=== PATIENT | female | born 1935 | race Caucasian/White ===

== ENCOUNTER 2016-11-19 10:00 | Inpatient (IN) | payer OTHER, BC ==
[~2016-11-19] VITALS: Ht 160 cm; Wt 84.1 kg
[~2016-11-19 10:00] MED LIST: ASPCH81X PO; CHOL400T PO; CYAN100020 PO; FENO145T26 PO; FURO-85 PO; GLIP1TAB85 PO; LBT/200 PO; LEVO75TA5 PO; NIFE30TA83 PO; NIFE60TA57 PO; NITR0.4D TD; SIMV10TA5 PO; ULT50X PO
[2016-11-19] MEDS ORDERED: SODIUM CHLORIDE 0.9% 500ML 500 ML IV STA (10:07)
[2016-11-19] MEDS ORDERED: SODIUM CHLORIDE 0.9% 1000ML 1,000 ML IV STA (10:07)
--- NOTE | 2016-11-19 10:20 | DIAGNOSTIC IMAGING REPORT ---
SINGLE VIEW CHEST CLINICAL HISTORY: Sepsis. FINDINGS: An AP, portable, supine chest radiograph is compared to study dated 04/15/2016. The examination is degraded by portable technique and patient rotation. The heart is enlarged and there is atherosclerotic calcification of the thoracic aorta. The pulmonary vasculature is noncongested. Chronic interstitial thickening is similar to previous. No airspace consolidation or large pleural effusion is identified. Atelectasis is noted at the left lung base. No pneumothorax is seen. The skeletal structures are osteopenic. 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 Calcified granulomas are seen in the spleen. IMPRESSION: Cardiomegaly with no acute cardiopulmonary abnormality. Electronically signed by: Attila Montes M.D. 11/19/2016 10:18 AM Dictated Date/Time: 11/19/2016 10:16 AM
[2016-11-19 10:25] LABS: HEMATOCRIT 38.3 % (37-47); MEAN CELL VOLUME 86.3 fL (80-100); MEAN CORPUSCULAR HEMOGLOBIN 29.1 pg (25-34); MEAN CORPUSCULAR HGB CONC 33.7 g/dl (32-36); MEAN PLATELET VOLUME 11.1 fL (7.4-10.4); PLATELET COUNT 220 K/uL (130-400); RED BLOOD COUNT 4.44 M/uL (4.2-5.4); WHITE BLOOD COUNT 15.29 K/uL (4.8-10.8)
--- NOTE | 2016-11-19 10:29 | DIAGNOSTIC IMAGING REPORT ---
CT SCAN OF THE BRAIN WITHOUT IV CONTRAST CLINICAL HISTORY: Change in mental status. Hypothermia. COMPARISON STUDY: CT of the brain dated 10/27/2013. TECHNIQUE: Unenhanced axial CT scan of the brain is performed from the vertex to the skull base. The patient was scanned twice due to motion artifact. CT DOSE: 1074.96 mGy.cm FINDINGS: Brain parenchyma: There are age-related involutional changes noting mild subcortical and periventricular microangiopathic change. There is no hemorrhage, mass effect, or evidence of acute territorial ischemia by CT criteria. Mandel-white matter is preserved. No extra-axial fluid collection is seen. Ventricles, sulci, cisterns: Prominent secondary to involutional change. Intracranial vasculature: There is atherosclerotic calcification of the cavernous carotid arteries. Calvarium: Unremarkable. Sinuses and mastoids: The visualized paranasal sinuses are clear. The mastoid air cells are well pneumatized. Orbits: The bony orbits are grossly intact. There are bilateral ocular lens implants. IMPRESSION: There is no hemorrhage, mass effect, or evidence of acute territorial ischemia by CT criteria. Electronically signed by: Attila Montes M.D. 11/19/2016 10:27 AM Dictated Date/Time: 11/19/2016 10:24 AM
[2016-11-19 10:40] LABS: ALT/SGPT 23 U/L (12-78); BLOOD UREA NITROGEN 52 mg/dl (7-18); BUN/CREATININE RATIO 24.7 (10-20); CALCIUM 9.8 mg/dl (8.5-10.1); CARBON DIOXIDE 19 mmol/L (21-32); CHLORIDE 107 mmol/L (98-107); GLUCOSE 153 mg/dl (70-99); POTASSIUM 5.6 mmol/L (3.5-5.1); SODIUM 141 mmol/L (136-145)
[2016-11-19 10:44] LABS: ALKALINE PHOSPHATASE 87 U/L (45-117); AST/SGOT 28 U/L (15-37)
[2016-11-19 10:45] LABS: ALB/GLOB RATIO 1.3 (0.9-2)
[2016-11-19 11:05] LABS: CKMB/CK RATIO 1.3 (0-3.0)
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
[2016-11-19 11:12] LABS: BASO % 0.2 %; BASO ABS # 0.03 K/uL (0-0.2); COMPLETE YES; EOS % 0.1 %; IG% 0.4 %; LYMPH % 10.3 %; LYMPH ABS # 1.57 K/uL (1.2-3.4); MONO % 2.6 %; NEUT % 86.4 %
[2016-11-19] MEDS ORDERED: METR-163 PO (11:46)
[2016-11-19] MEDS ORDERED: CEPH500C2 PO (11:46)
[2016-11-19 11:55] LABS: BENZODIAZEPINE, URINE NEG (NEG); COCAINE,URINE NEG (NEG); PHENCYCLIDINE, URINE NEG (NEG)
[2016-11-19] MEDS ORDERED: NTRTP2 TD (11:56)
[2016-11-19] MEDS ORDERED: SODIUM POLYST. SULF SUSP 15G/60ML PO STA (11:57)
[2016-11-19] MEDS ORDERED: CALCIUM GLUCONATE 10% 1,000 MG in SODIUM CHLORIDE 0.9% 50ML 50 ML IV ONE (12:00)
[2016-11-19] MEDS ORDERED: CONSULT PHARMACY STA (12:28)
[2016-11-19] MEDS ORDERED: ONDANSETRON INJ 2 MG/ML 2 ML VIAL IV PRN (12:30)
[2016-11-19] MEDS ORDERED: CHOL1000 PO (12:35)
[2016-11-19] MEDS ORDERED: GLUCOSE 40% GEL 15 GM TUBE PO PRN (12:45)
[2016-11-19] MEDS ORDERED: DEXTROSE 50% 50 ML SYR IV PRN (12:45)
[2016-11-19] MEDS ORDERED: GLUCOSE 10 TABS/TUBE PO PRN (12:45)
[2016-11-19] MEDS ORDERED: GLUCAGON FOR INJ 1 MG VIAL SQ PRN (12:45)
[2016-11-19 12:47] LABS: URINE APPEARANCE CLEAR (CLEAR); URINE BILIRUBIN NEG (NEG); URINE COLOR YELLOW; URINE EPITHELIAL CELL AUTO 0-5 /lpf (0-5); URINE NITRITE NEG (NEG); URINE SPECIFIC GRAVITY 1.008 (1.000-1.030); UROBILINOGEN NEG (NEG)
[2016-11-19 12:52] LABS: MANUAL MICROSCOPIC REQUIRED? NO; REVIEW REQ? NO
[2016-11-19 13:30] VITALS: BP 169/72; TEMP 36.5; O2SAT 97; Ht 160 cm; Wt 84.1 kg
[2016-11-19] MEDS ORDERED: AZTREONAM 2000 MG in DEXTROSE 5% 100 ML IV SCH (13:30)
[2016-11-19] MEDS ORDERED: AZTREONAM CONSULT ACTIVE PRN ×2 (13:45)
[2016-11-19] MEDS ORDERED: VANCOMYCIN CONSULT ACTIVE PRN (13:45)
[2016-11-19] MEDS ORDERED: VANCOMYCIN INJ 2,100 MG in SODIUM CHLORIDE 0.9% 500ML 500 ML IV SCH (14:00)
--- NOTE | 2016-11-19 14:13 | History and Physical ---
History & Physical Date & Time of Service: Nov 19, 2016 at 12:47 Chief Complaint: Hypothermia Primary Care Physician: Sumeet Izquierdo M.D. History of Present Illness Source: family, hospital records This is an 81 year old female with PMH of CAD s/p stent, DM, sleep apnea non- compliant with CPAP, hypothyroidism, hypertension, hyperlipidemia, and other problems listed below, who was brought to ER by ambulance for altered mental status. History not obtainable from patient due to mental status. Family states they saw the patient yesterday after she had fallen in the basement (family unsure what happened) after going to the basement because she thought there was an intruder. Then today pt' son-in-law came to her house, patient did not answer the door so entered the house through the window. Patient was not in the house and son-in-law noticed furniture was knocked over. 911 was called and patient was found 500 yards away from the home. It is unclear how long she was outside. Daughter states she was saying that people were trying to inject her with needles when she as found. Upon arrival to the ED patient was hypothermic with core temp 34.6 which improved with warm IVF's and Ruel hugger. Daughters state she was an antibiotics in late October for left leg infected sores. Daughter felt she was not getting better so called Dr. Izquierdo, who called in script for Keflex and Flagyl to start yesterday, but daughter states she did not take it (daughter counted the pills). Pt's daughter is unsure if she is taking any of her medications. Daughter states after May 2016 shoulder surgery she had hallucinations, and since then it was happening intermittently, but has been worse over past 2 months. Patient lives alone and cares for herself including her finances, which the daughter checks. Daughter states she is paranoid about the finances, has had insomnia, and has been fearful to leave her home, and has intermittent short term memory loss. Family denies any recent illness including fevers, chills, URI symptoms, cough, GI symptoms, urinary symptoms. She has been eating and drinking normally per family. Patient denies any chest pain or shortness of breath. 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 Family states stent was placed in remote past. Daughters deny history of schizophrenia, anxiety, depression, dementia. Denies history of arrhythmia or CHF. Past Medical/Surgical History Medical Problems: (1) CAD (coronary artery disease) Status: Chronic (2) Diabetes Status: Chronic (3) DM type 2 (diabetes mellitus, type 2) Status: Chronic (4) Hyperlipidemia Status: Chronic (5) Hypertension Status: Chronic (6) Hypothyroidism Status: Chronic (7) Sleep apnea Permanent Comment: not compliant with CPAP Status: Chronic Surgical Problems: (1) H/O shoulder surgery Status: Chronic (2) S/P coronary artery stent placement Status: Chronic (3) S/p right ankle surgery Status: Chronic Family History Not obtainable due to patient's mental status. Social History Smoking Status: Never Smoker Alcohol Use: none Drug Use: none Marital Status: Housing status: lives alone Occupational Status: retired Immunizations History of Influenza Vaccine: Yes History of Tetanus Vaccine?: Unknown History of Pneumococcal: Yes History of Hepatitis B Vaccine: No Allergies Coded Allergies: Codeine (Verified Allergy, Intermediate, Nausea, 05/15/16) Morphine (Verified Allergy, Unknown, nausea, 05/15/16) Penicillins (Unverified Adverse Reaction, Unknown, UNKNOWN, 11/19/16) Home Medications Scheduled Aspirin (Aspirin Chewable), 81 MG PO DAILY Cephalexin Monohydrate (Keflex), 500 MG PO TID Cholecalciferol (Vitamin D3), 1 TAB PO DAILY Cyanocobalamin (Vitamin B12), 1,000 MCG PO QAM Furosemide (Lasix), 20 MG PO QAM Glipizide Xl (Glucotrol Xl), 10 MG PO QAM Labetalol Hcl (Normodyne), 200 MG PO BID Levothyroxine Sodium (Levothyroxine Sodium), 75 MCG PO QAM Metronidazole (Flagyl), 500 MG PO BID Nifedipine Ext Rel (Procardia Xl Ext Rel), 30 MG PO QAM Nifedipine Ext Rel (Procardia Xl Ext Rel), 60 MG PO QAM Nitroglycerin (Nitroglycerin Transdermal), TD DAILY Simvastatin (Zocor), 10 MG PO QPM Review of Systems Not obtainable due to patient's mental status. Physical Exam Vital Signs Date Time Temp Pulse Resp B/P Pulse Ox O2 Delivery O2 Flow Rate FiO2 11/19/16 12:30 36.5 79 18 153/58 97 Room Air 11/19/16 12:00 36.1 76 18 153/78 100 Mask 10.0 11/19/16 11:30 35.7 66 16 156/54 99 Mask 10.0 11/19/16 11:22 35.6 80 18 157/49 99 Mask 10.0 11/19/16 11:02 35.4 85 20 122/104 99 Mask 10.0 11/19/16 10:42 35.1 69 22 145/66 99 Mask 10.0 11/19/16 10:28 35.0 79 20 238/111 99 Mask 10.0 11/19/16 10:27 100 Mask 11/19/16 10:10 34.6 74 100 Humidified Oxygen 10.0 11/19/16 10:06 77 General Appearance: WD/WN, + pertinent finding (alert confused ill appearing 81 year old female, ruel hugger in place, no distress, daughters at bedside) Head: normocephalic, atraumatic Eyes: normal inspection, PERRL, EOMI, sclerae normal ENT: pharynx normal, + pertinent finding (hard of hearing) Neck: supple Respiratory/Chest: lungs clear, normal breath sounds, no respiratory distress, no accessory muscle use, + pertinent finding (saturating well on oxygen mask) Cardiovascular: regular rate, rhythm, no murmur Abdomen/GI: normal bowel sounds, non tender, soft Extremities/Musculoskelatal: no calf tenderness, + pertinent finding (1+ edema BLLE) Neurologic/Psych: alert, normal mood/affect, + pertinent finding (initially was not answering questions appropriately. on reassessment she could answer she is in the hospital, and date is "around the ". unable to answer what happened [employer] RO[employer]. no dysarthria. cranial nerves II-XII intact. generally weak but moves all extremities equally. ) Skin: warm/dry, + pertinent finding (scattered ecchymosis and fresh appearing abrasions of extremities) Diagnostics Laboratory Results Results Past 24 Hours Test 11/19/16 09:14 11/19/16 10:07 11/19/16 10:37 11/19/16 11:00 Range/Units White Blood Count 15.29 4.8-10.8 K/uL Red Blood Count 4.44 4.2-5.4 M/uL Hemoglobin 12.9 12.0-16.0 g/dL Hematocrit 38.3 37-47 % Mean Corpuscular Volume 86.3 80-100 fL Mean Corpuscular Hemoglobin 29.1 25-34 pg Mean Corpuscular Hemoglobin Concent 33.7 32-36 g/dl Platelet Count 220 130-400 K/uL Mean Platelet Volume 11.1 7.4-10.4 fL Neutrophils (%) (Auto) 86.4 % Lymphocytes (%) (Auto) 10.3 % Monocytes (%) (Auto) 2.6 % Eosinophils (%) (Auto) 0.1 % Basophils (%) (Auto) 0.2 % Neutrophils # (Auto) 13.22 1.4-6.5 K/uL Lymphocytes # (Auto) 1.57 1.2-3.4 K/uL Monocytes # (Auto) 0.39 0.11-0.59 K/uL Eosinophils # (Auto) 0.02 0-0.5 K/uL Basophils # (Auto) 0.03 0-0.2 K/uL RDW Standard Deviation 44.6 36.4-46.3 fL RDW Coefficient of Variation 14.1 11.5-14.5 % Immature Granulocyte % (Auto) 0.4 % Immature Granulocyte # (Auto) 0.06 0.00-0.02 K/uL Prothrombin Time 11.0 9.0-12.0 SECONDS Prothromb Time International Ratio 1.0 0.9-1.1 Activated Partial Thromboplast Time 26.4 21.0-31.0 SECONDS Partial Thromboplastin Ratio 1.0 Sodium Level 141 136-145 mmol/L Potassium Level 5.6 3.5-5.1 mmol/L Chloride Level 107 98-107 mmol/L Carbon Dioxide Level 19 21-32 mmol/L Anion Gap 15.0 3-11 mmol/L Blood Urea Nitrogen 52 7-18 mg/dl Creatinine 2.10 0.60-1.20 mg/dl Est Creatinine Clear Calc Drug Dose 22.3 ml/min Estimated GFR () 25.1 Estimated GFR (Non- 21.7 BUN/Creatinine Ratio 24.7 10-20 Random Glucose 153 70-99 mg/dl Calcium Level 9.8 8.5-10.1 mg/dl Total Bilirubin 0.9 0.2-1 mg/dl Aspartate Amino Transf (AST/SGOT) 28 15-37 U/L Alanine Aminotransferase (ALT/SGPT) 23 12-78 U/L Alkaline Phosphatase 87 45-117 U/L Total Creatine Kinase 494 26-192 U/L Creatine Kinase MB 6.2 0.5-3.6 ng/ml Creatine Kinase MB Ratio 1.3 0-3.0 Troponin I < 0.015 0-0.045 ng/ml Total Protein 7.7 6.4-8.2 gm/dl Albumin 4.4 3.4-5.0 gm/dl Globulin 3.3 2.5-4.0 gm/dl Albumin/Globulin Ratio 1.3 0.9-2 Thyroid Stimulating Hormone (TSH) 2.040 0.300-4.500 uIu/ml Bedside Lactic Acid Venous 1.42 0.90-1.70 mmol/L Urine Opiates Screen NEG NEG Urine Methadone, Qualitative NEG NEG Urine Barbiturates NEG NEG Urine Phencyclidine (PCP) Level NEG NEG Ur Amphetamine/Methamphetamine NEG NEG MDMA (Ecstasy) Screen NEG NEG Urine Benzodiazepines Screen NEG NEG Urine Cocaine Metabolite NEG NEG Urine Marijuana (THC) NEG NEG Microbiology Results 11/19/16 Blood Culture, Received Pending 11/19/16 Urine Culture, Received Pending Diagnostic Radiology SINGLE VIEW CHEST CLINICAL HISTORY: Sepsis. FINDINGS: An AP, portable, supine chest radiograph is compared to study dated 04/15/2016. The examination is degraded by portable technique and patient rotation. The heart is enlarged and there is atherosclerotic calcification of the thoracic aorta. The pulmonary vasculature is noncongested. Chronic interstitial thickening is similar to previous. No airspace consolidation or large pleural effusion is identified. Atelectasis is noted at the left lung base. No pneumothorax is seen. The skeletal structures are osteopenic. 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 Calcified granulomas are seen in the spleen. IMPRESSION: Cardiomegaly with no acute cardiopulmonary abnormality. CT SCAN OF THE BRAIN WITHOUT IV CONTRAST CLINICAL HISTORY: Change in mental status. Hypothermia. COMPARISON STUDY: CT of the brain dated 10/27/2013. TECHNIQUE: Unenhanced axial CT scan of the brain is performed from the vertex to the skull base. The patient was scanned twice due to motion artifact. CT DOSE: 1074.96 mGy.cm FINDINGS: Brain parenchyma: There are age-related involutional changes noting mild subcortical and periventricular microangiopathic change. There is no hemorrhage, mass effect, or evidence of acute territorial ischemia by CT criteria. Mandel-white matter is preserved. No extra-axial fluid collection is seen. Ventricles, sulci, cisterns: Prominent secondary to involutional change. Intracranial vasculature: There is atherosclerotic calcification of the cavernous carotid arteries. Calvarium: Unremarkable. Sinuses and mastoids: The visualized paranasal sinuses are clear. The mastoid air cells are well pneumatized. Orbits: The bony orbits are grossly intact. There are bilateral ocular lens implants. IMPRESSION: There is no hemorrhage, mass effect, or evidence of acute territorial ischemia by CT criteria. EKG atrial fibrillation, 70 bpm, no ST or T wave abnormalities Impression Assessment and Plan ALTERED MENTAL STATUS Unclear etiology CT head- no acute findings Check MRI brain Consult neurology Consult psychiatry re hallucinations Neuro checks NPO except meds for now Speech therapy evaluation SIRS Meets SIRS criteria with hypothermia and leukocytosis; no tachycardia or hypotension; lactic acid WNL No clear source of infection CXR- no infiltrate, UA normal, skin abrasions with no apparent cellulitis Check blood cultures, urine culture Start broad spectrum antibiotics with Vancomycin and Aztreonam HYPOTHERMIA Initial core temp 34.6; improved with Ruel hugger and warmed IVF's Was outside in cold for unclear duration HYPERKALEMIA K is 5.6 EKG shows AF, no peaked T waves Will give calcium gluconate and Kayexalate Monitor in telemetry Recheck PRP this afternoon at 1600 ATRIAL FIBRILLATION Family denies history of AF- will obtain cardiology records from Post cardiology Initial EKG in ER showed atrial fibrillation with controlled rate Spontaneously converted to sinus rhythm Likely due to hypothermia Consult cardiology Recheck EKG in am HYPERTENSIVE URGENCY BP initially elevated to 238/111; now improved to 150s systolic Continue labetalol and nifedipine Resume furosemide in am CAD S/P STENT Stent done in remote past per family EKG- no ischemic findings Troponin negative Continue aspirin, beta tammie, nitro patch, statin CKD Cr is 2.1; has run 1.5 to 2.1 in past [facility] labs Received 500 mL bolus then started on 250 mL/hour in ER Will continue IVF's at 100 mL/hour Monitor renal function DM TYPE 2 Hold glipizide Insulin sliding scale coverage Check A1c in am HYPOTHYROIDISM Continue levothyroxine DVT PROPHYLAXIS Heparin SQ CODE STATUS DNR/ DNI per my discussion with the patient's daughters at bedside. Patient has a living will. DISPOSITION Follows with Dr. Shelly Izquierdo for primary care Living alone; family has been concerned, but states she refuses to move in with one of the daughters. Consult social services coordinator for discharge planning Would do PT/ OT evals once medically stable Patient seen in collaboration with Dr. Banks. Please see his addendum. VTE Prophylaxis VTE Risk Assessment Done? Y/N: Yes Risk Level: High
[2016-11-19] MEDS: HEPARIN SOD 5000 UNIT/0.5 ML CARP SQ SCH (14:50)
[2016-11-19] MEDS: SODIUM CHLORIDE 0.9% 1000ML 1,000 ML IV SCH (14:51)
--- NOTE | 2016-11-19 15:03 | Neurology Consultation ---
Neurology Consultation Date of Consultation: Nov 19, 2016. Attending Physician: Lisa Pan DO Primary Care Physician: Sumeet Izquierdo M.D. Reason for Consultation: altered mental status, hallucinations History of Present Illness 2 daughters and a granddaughter in room to give history. For the past 2 months Jessie has been having episodes of hallucinations. Yesterday she fell on her left hip. This am she was found outside in the cold with no shoes on and just her nightgown apparently crawled out of her window because she thought people where in the basement. She does not remember this or why she is in the hospital. She lives alone and up to this point she was making out her own bills and taking her own medications. Her son comes in and check that the bills are made out correctly but the daughters don't think she has been taking her medications appropriately. She had an infection on her left leg that they were treating with antibiotics but the second round of antibiotics were not taken. She is very [place] and tries to read people lips. her only current complaint is pain in her left hip. denies CP, SOB, abdominal pain, weakness, numbness tingling, N, V. Past Medical/Surgical History Medical Problems: (1) Acute kidney injury Status: Acute (2) Altered mental status Status: Acute Social History Smoking Status: Unknown if ever smoked Alcohol Use: none Drug Use: none Marital Status: Housing Status: lives with family Occupation Status: retired Allergies Coded Allergies: Codeine (Verified Allergy, Intermediate, Nausea, 05/15/16) Morphine (Verified Allergy, Unknown, nausea, 05/15/16) Penicillins (Unverified Adverse Reaction, Unknown, UNKNOWN, 11/19/16) Current Inpatient Medications Current Inpatient Medications Medications (Trade) Dose Ordered Sig/Anselmo Route Start Time Stop Time Status Last Admin Dose Admin Sodium Chloride (Nss 1000ml) 1,000 ml @ 100 mls/hr Q10H IV 11/19/16 12:26 12/19/16 12:25 Acetaminophen (Tylenol Tab) 650 mg Q4H PRN PO 11/19/16 12:30 12/19/16 12:29 Ondansetron HCl (Zofran Inj) 4 mg Q6H PRN IV 11/19/16 12:30 12/19/16 12:29 Vancomycin HCl (Consult) 1 ea UD PRN N/A 11/19/16 13:45 12/19/16 13:44 Heparin Sodium (Porcine) (Heparin Sq 5000 Unit/0.5ml) 5,000 unit Q8 SQ 11/19/16 14:00 12/19/16 13:59 Aspirin (Ecotrin Tab) 81 mg DAILY PO 11/20/16 09:00 12/20/16 08:59 Cholecalciferol (Vitamin D Tab) 1,000 inter.unit DAILY PO 11/20/16 09:00 12/20/16 08:59 Furosemide (Lasix Tab) 20 mg QAM PO 11/20/16 09:00 12/20/16 08:59 Labetalol HCl (Normodyne Tab) 200 mg BID PO 11/19/16 21:00 12/19/16 20:59 Levothyroxine Sodium (Synthroid Tab) 75 mcg DAILYBB PO 11/20/16 06:00 12/20/16 05:59 Nitroglycerin (Nitro-Dur 0.2 Mg/Hr Patch) 1 patch DAILY TD 11/20/16 09:00 12/20/16 08:59 Simvastatin (Zocor Tab) 10 mg QPM PO 11/19/16 21:00 12/19/16 20:59 Cyanocobalamin (Vitamin B-12 Tab) 1,000 mcg QAM PO 11/20/16 09:00 12/20/16 08:59 Aztreonam (Consult) 1 ea UD PRN N/A 11/19/16 13:45 12/19/16 13:44 Insulin Aspart (novoLOG ASPART) SLIDING SCALE If C... ACHS SC 11/19/16 16:15 12/19/16 16:14 Glucose (Glucose 40% Gel) 15-30 GRAMS 15 GRAMS... UD PRN PO 11/19/16 12:45 12/19/16 12:44 Glucose (Glucose Chew Tab) 4-8 Tablets 4 Tabl... UD PRN PO 11/19/16 12:45 12/19/16 12:44 Dextrose (Dextrose 50% 50ML Syringe) 25-50ML OF 50% DW IV FOR... UD PRN IV 11/19/16 12:45 12/19/16 12:44 Glucagon 1 mg 1 mg UD PRN SQ 11/19/16 12:45 12/19/16 12:44 Aztreonam 2000 mg/ Dextrose 110 ml @ 110 mls/hr TODAY@1330 IV 11/19/16 13:30 11/19/16 23:59 Vancomycin HCl/ Sodium Chloride (Vancomycin Inj/ Nss 500ml) 542 ml @ 200 mls/hr TODAY@1400 IV 11/19/16 14:00 11/19/16 23:59 Nifedipine (Procardia Xl Tab) 90 mg QAM PO 11/20/16 09:00 12/20/16 08:59 Miscellaneous (Remove Nitro-Dur Patch) 1 ea DAILY@21 N/A 11/19/16 21:00 12/19/16 20:59 Physical Exam Vital Signs (Past 24 Hrs): Date Time Temp Pulse Resp B/P Pulse Ox O2 Delivery O2 Flow Rate FiO2 11/19/16 13:30 36.5 16 169/72 97 Room Air 11/19/16 12:52 87 11/19/16 12:30 36.5 79 18 153/58 97 Room Air 11/19/16 12:00 36.1 76 18 153/78 100 Mask 10.0 11/19/16 11:30 35.7 66 16 156/54 99 Mask 10.0 11/19/16 11:22 35.6 80 18 157/49 99 Mask 10.0 11/19/16 11:02 35.4 85 20 122/104 99 Mask 10.0 11/19/16 10:42 35.1 69 22 145/66 99 Mask 10.0 11/19/16 10:28 35.0 79 20 238/111 99 Mask 10.0 11/19/16 10:27 100 Mask 11/19/16 10:10 34.6 74 100 Humidified Oxygen 10.0 11/19/16 10:06 77 Physical Exam: Constitutional: appearance nourished, obese Ears, Nose, Mouth and Throat: mucous membranes moist, no injection and skin normal, eyes normal Cardiovascular: normal S-1 and S-2 and regular rate and rhythm Respiratory: clear to auscultation (CTA) and no rales, rhonchi or wheeze Musculoskeletal: bilateral 2+ pitting edema, pain with lifting left leg Skin: extensive bruising arms, and abrasions bilateral LE Eyes: extraocular muscles intact (EOMI) and pupils equal, round and reactive to light (PERRL) NEUROLOGIC EXAMINATION: Mental status: Alert and interactive, very [place] Oriented to hospital, knows 2017, just celebrated MLK birthday, Meg is president Oriented to person Speech fluent with no evidence of aphasia Cranial Nerves smile and eye brow raise symmetric, tongue midline Reflexes: Deep tendon reflexes were symmetrical and graded 2/5. Plantar responses were flexor. Sensory: cool touch or vibration Coordination: finger to nose without bi pass or tremor Gait/Stance: lying in bed Motor: Negative for pronator drift of out stretched arms with eyes closed. 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, right hip flex 5/5, left hip flex 3/5, plantar flex ext 5/5 Laboratory Results Past 24 Hours: 11/19/16 09:14 Red Blood Count 4.44, Mean Corpuscular Volume 86.3, Mean Corpuscular Hemoglobin 29.1, Mean Corpuscular Hemoglobin Concent 33.7, Mean Platelet Volume 11.1, Neutrophils (%) (Auto) 86.4, Lymphocytes (%) (Auto) 10.3, Monocytes (%) (Auto) 2.6, Eosinophils (%) (Auto) 0.1, Basophils (%) (Auto) 0.2, Neutrophils # (Auto) 13.22, Lymphocytes # (Auto) 1.57, Monocytes # (Auto) 0.39, Eosinophils # (Auto) 0.02, Basophils # (Auto) 0.03 11/19/16 09:14 Test 11/19/16 09:14 11/19/16 10:07 11/19/16 10:37 11/19/16 11:00 White Blood Count 15.29 K/uL (4.8-10.8) Red Blood Count 4.44 M/uL (4.2-5.4) Hemoglobin 12.9 g/dL (12.0-16.0) Hematocrit 38.3 % (37-47) Mean Corpuscular Volume 86.3 fL (80-100) Mean Corpuscular Hemoglobin 29.1 pg (25-34) Mean Corpuscular Hemoglobin Concent 33.7 g/dl (32-36) Platelet Count 220 K/uL (130-400) Mean Platelet Volume 11.1 fL (7.4-10.4) Neutrophils (%) (Auto) 86.4 % Lymphocytes (%) (Auto) 10.3 % Monocytes (%) (Auto) 2.6 % Eosinophils (%) (Auto) 0.1 % Basophils (%) (Auto) 0.2 % Neutrophils # (Auto) 13.22 K/uL (1.4-6.5) Lymphocytes # (Auto) 1.57 K/uL (1.2-3.4) Monocytes # (Auto) 0.39 K/uL (0.11-0.59) Eosinophils # (Auto) 0.02 K/uL (0-0.5) Basophils # (Auto) 0.03 K/uL (0-0.2) RDW Standard Deviation 44.6 fL (36.4-46.3) RDW Coefficient of Variation 14.1 % (11.5-14.5) Immature Granulocyte % (Auto) 0.4 % Immature Granulocyte # (Auto) 0.06 K/uL (0.00-0.02) Prothrombin Time 11.0 SECONDS (9.0-12.0) Prothromb Time International Ratio 1.0 (0.9-1.1) Activated Partial Thromboplast Time 26.4 SECONDS (21.0-31.0) Partial Thromboplastin Ratio 1.0 Anion Gap 15.0 mmol/L (3-11) Est Creatinine Clear Calc Drug Dose 22.3 ml/min Estimated GFR () 25.1 Estimated GFR (Non- 21.7 BUN/Creatinine Ratio 24.7 (10-20) Calcium Level 9.8 mg/dl (8.5-10.1) Total Bilirubin 0.9 mg/dl (0.2-1) Aspartate Amino Transf (AST/SGOT) 28 U/L (15-37) Alanine Aminotransferase (ALT/SGPT) 23 U/L (12-78) Alkaline Phosphatase 87 U/L (45-117) Total Creatine Kinase 494 U/L (26-192) Creatine Kinase MB 6.2 ng/ml (0.5-3.6) Troponin I < 0.015 ng/ml (0-0.045) Total Protein 7.7 gm/dl (6.4-8.2) Albumin 4.4 gm/dl (3.4-5.0) Globulin 3.3 gm/dl (2.5-4.0) Albumin/Globulin Ratio 1.3 (0.9-2) Thyroid Stimulating Hormone (TSH) 2.040 uIu/ml (0.300-4.500) Creatine Kinase MB Ratio (0-3.0) Bedside Lactic Acid Venous 1.42 mmol/L (0.90-1.70) Urine Color YELLOW Urine Appearance CLEAR (CLEAR) Urine pH 5.0 (4.5-7.5) Urine Specific [place] 1.008 (1.000-1.030) Urine Protein TRACE (NEG) Urine Glucose (UA) NEG (NEG) Urine Ketones NEG (NEG) Urine Occult Blood NEG (NEG) Urine Nitrite NEG (NEG) Urine Bilirubin NEG (NEG) Urine Urobilinogen NEG (NEG) Urine Leukocyte Esterase NEG (NEG) Urine WBC (Auto) 0 /hpf (0-5) Urine RBC (Auto) 0-4 /hpf (0-4) Urine Hyaline Casts (Auto) 1-5 /lpf (0-5) Urine Epithelial Cells (Auto) 0-5 /lpf (0-5) Urine Bacteria (Auto) NEG (NEG) Urine Opiates Screen NEG (NEG) Urine Methadone, Qualitative NEG (NEG) Urine Barbiturates NEG (NEG) Urine Phencyclidine (PCP) Level NEG (NEG) Ur Amphetamine/Methamphetamine NEG (NEG) MDMA (Ecstasy) Screen NEG (NEG) Urine Benzodiazepines Screen NEG (NEG) Urine Cocaine Metabolite NEG (NEG) Urine Marijuana (THC) NEG (NEG) Test 11/19/16 14:[address] head- no acute findings Impression 81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 MRI brain to r/o lesions or malformation 2. hip xray left -pain with movement 3. B12, Folate RPR for reversible causes of dementia 4. kidney function should be evaluated -will need the MRI without contrast 5. carotid doppler -ordered I have seen and discussed above patient with Dr Liliam Becker, neurology Pt seen and examined. Gradually progressive cognitive dysfunction over greater than 1 year with decreased STM and word finding difficulty with some paranoia and delusions. Family believes pt left her home through a window. The pt walked a distance through a cornfield barefoot in her night gown and bathrobe. It is unknown how long she was outside when she was found in the field hypothermic. The pt appears mildly delirious at present likely related to hypothermia, recent infection. 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 Once improving would consider Aoloft. pt has been mildly depressed and that could potentially help with paranoid, delusions. If not seroquel might be an option. Will likely start on Aricept at outpt. Pt needs 24 hour/day supervision. VINEET Becker MD
[2016-11-19 15:46] VITALS: BP 161/68; PULSE 78; TEMP 36.5; O2SAT 98
[2016-11-19] MEDS: INSULIN ASPART 100 UNITS/ML 3 ML PEN SC SCH ×2 (16:15→21:00)
--- NOTE | 2016-11-19 16:15 | Pharmacy Progress Note ---
Pharmacy Antibiotic Consult Date of Service: Nov 19, 2016. Pharmacy Dosing Scope Pharmacy is consulted to initiate IV Vancomycin/Aztreonam dosing therapy, order appropriate labs and adjust drug dose/frequency. Subjective The patient is a 81 year old female admitted on Nov 19, 2016 at 12:26. Objective Height (Feet): 5 Height (Inches): 3.00 Weight (Kilograms): 83.000 Lab Results (24hrs): Laboratory Tests Test 11/19/16 09:14 11/19/16 16:00 BUN/Creatinine Ratio 24.7 Blood Urea Nitrogen 52 mg/dl Creatinine 2.10 mg/dl White Blood Count 15.29 K/uL Red Blood Count 4.44 M/uL Hemoglobin 12.9 g/dL Hematocrit 38.3 % Mean Corpuscular Volume 86.3 fL Mean Corpuscular Hemoglobin 29.1 pg Mean Corpuscular Hemoglobin Concent 33.7 g/dl Platelet Count 220 K/uL Mean Platelet Volume 11.1 fL Neutrophils (%) (Auto) 86.4 % Lymphocytes (%) (Auto) 10.3 % Monocytes (%) (Auto) 2.6 % Eosinophils (%) (Auto) 0.1 % Basophils (%) (Auto) 0.2 % Neutrophils # (Auto) 13.22 K/uL Lymphocytes # (Auto) 1.57 K/uL Monocytes # (Auto) 0.39 K/uL Eosinophils # (Auto) 0.02 K/uL Basophils # (Auto) 0.03 K/uL Micro Results: Item Value Date Time Blood Culture Received 11/19/16 1040 Blood Pending Urine Culture Received 11/19/16 1100 Urine , Clean Catch Pending Blood Culture Received 11/19/16 1410 Blood Pending Recent Pertinent Medications Item Value Date Time Vancomycin HCl 542 ml @ 200 mls/hr 11/19/16 1400 2100 mg/Sodium TODAY@1400/IV 11/19/16 1559 Chloride Item Value Date Time Aztreonam 2000 mg/ 110 ml @ 110 mls/hr 11/19/16 1330 Dextrose TODAY@1330/IV 11/19/16 1451 Aztreonam 1000 mg/ 110 ml @ 110 mls/hr 11/19/16 2200 Dextrose DAILY@06,14,22/IV Assessment & Plan Vancomycin * 81 yo female to start IV Vancomycin/Aztreonam for SIRS--unknown source * Loading dose: Vancomycin 2100mg IV x 1 dose (25mg/kg) * Goal trough level: 15-20mcg/mL * P'kinetic estimates: k ~ 0.0229hr-1 & t1/2 ~ 30hr * Baseline p'kinetic estimates: k ~ 0.0293hr-1 & t1/2 ~ 23.7hr * Random level ordered for AM -- will determine further dosing once renal fxn/ level are assessed Pharmacy will continue to follow and will adjust dose/frequency as necessary. Thank you
[2016-11-19 16:29] LABS: BASO % 0.3 %; BASO ABS # 0.02 K/uL (0-0.2); COMPLETE YES; EOS % 0.2 %; HEMATOCRIT 31.4 % (37-47); IG% 0.2 %; LYMPH % 16.3 %; LYMPH ABS # 1.04 K/uL (1.2-3.4); MEAN CELL VOLUME 86.3 fL (80-100); MEAN CORPUSCULAR HEMOGLOBIN 28.6 pg (25-34); MEAN CORPUSCULAR HGB CONC 33.1 g/dl (32-36); MEAN PLATELET VOLUME 10.8 fL (7.4-10.4); MONO % 8.2 %; NEUT % 74.8 %; PLATELET COUNT 163 K/uL (130-400); RED BLOOD COUNT 3.64 M/uL (4.2-5.4); WHITE BLOOD COUNT 6.37 K/uL (4.8-10.8)
[2016-11-19 16:58] LABS: BUN/CREATININE RATIO 31.7 (10-20); CREATININE 1.5 mg/dl (0.60-1.20)
[2016-11-19 16:59] LABS: POTASSIUM 4.1 mmol/L (3.5-5.1)
--- NOTE | 2016-11-19 17:34 | Cardiology Consultation ---
Cardiology Consultation A cardiology consultation was requested for the evaluation of atrial fibrillation. Per the admission History and physical patient was felt to be in atrial fibrillation on an EKG performed upon arrival to the emergency department. Upon review of records, I find only one EKG tracing performed 11/19/16 at 11:09: 32 am. Although the preliminary computer interpretation state that atrial fibrillation is present, per my interpretation P waves are evident in least V2 and V3. I would interpret the rhythm as sinus rhythm with occasional PACs. Review of pt's telemetry reveals SR and artifact. I find no definite atrial fibrillation. I have not examined the patient and do not plan to charge for the consultation at this time. Please call if further concerns arise. I did review the paper chart, [facility], and the [facility] EKG interpretation portal and I cannot find an EKG that reveals atrial fibrillation. Willy Red, DO
[2016-11-19 19:54] VITALS: BP 182/84; PULSE 76; TEMP 36.6; O2SAT 97
[2016-11-19 20:00] VITALS: O2SAT 97
[2016-11-19] MEDS: SIMVASTATIN 10 MG TAB PO SCH (20:50)
[2016-11-19] MEDS: LABETALOL HCL 200 MG TAB PO SCH (20:51)
[2016-11-20] VITALS (8 sets, daily range): BP systolic 162–194; BP diastolic 62–80; PULSE 61–78; TEMP 36.8–37; O2SAT 95–98
[2016-11-20] MEDS: AZTREONAM IV 1,000 MG in DEXTROSE 5% 100ML IV SCH ×4 (00:34→21:41)
[2016-11-20] MEDS: SODIUM CHLORIDE 0.9% 1000ML 1,000 ML IV SCH ×3 (00:38→21:38)
[2016-11-20] MEDS: HEPARIN SOD 5000 UNIT/0.5 ML CARP SQ SCH ×4 (00:39→22:08)
[2016-11-20 06:18] LABS: HEMATOCRIT 30.9 % (37-47); MEAN CELL VOLUME 86.6 fL (80-100); MEAN CORPUSCULAR HEMOGLOBIN 28.3 pg (25-34); MEAN CORPUSCULAR HGB CONC 32.7 g/dl (32-36); MEAN PLATELET VOLUME 10.7 fL (7.4-10.4); PLATELET COUNT 158 K/uL (130-400); RED BLOOD COUNT 3.57 M/uL (4.2-5.4); WHITE BLOOD COUNT 4.93 K/uL (4.8-10.8)
[2016-11-20] MEDS: LEVOTHYROXINE 75 MCG TAB PO SCH (06:25)
[2016-11-20 06:37] LABS: BUN/CREATININE RATIO 27.3 (10-20); CALCIUM 8.4 mg/dl (8.5-10.1); CREATININE 1.2 mg/dl (0.60-1.20); POTASSIUM 3.7 mmol/L (3.5-5.1)
[2016-11-20 06:54] LABS: ESTIMATED AVERAGE GLUCOSE 128 mg/dl; HA1C FLAG Normal (Normal)
[2016-11-20] MEDS: INSULIN ASPART 100 UNITS/ML 3 ML PEN SC SCH ×4 (07:00→21:26)
--- NOTE | 2016-11-20 07:08 | DIAGNOSTIC IMAGING REPORT ---
ULTRASOUND OF THE CAROTID ARTERIES CLINICAL HISTORY: Change in mental status. COMPARISON STUDY: No priors. TECHNIQUE: Real-time, grayscale, and color Doppler sonography of the carotid arteries is performed. Images are reviewed in the transverse and longitudinal planes. The examination is degraded by lack of patient cooperation. FINDINGS: Blood pressures were not assessed due to the presence of IV catheters. The carotid arteries are patent bilaterally and demonstrate antegrade flow. There is mild to moderate echogenic shadowing atherosclerotic plaque seen in the carotid bulbs bilaterally, right greater than left. Normal doppler arterial waveforms are seen throughout. Velocity measurements are listed below. Common carotid peak systolic velocity (cm/sec): RIGHT: 78 LEFT: 89 ICA proximal peak systolic velocity (cm/sec): RIGHT: 119 LEFT: 93 ICA mid peak systolic velocity (cm/sec): RIGHT: 106 LEFT: 93 ICA distal peak systolic velocity (cm/sec): RIGHT: 90 LEFT: 106 ICA/CC peak systolic ratio: RIGHT: 1.5 LEFT: 1.2 Antegrade flow was shown in the vertebral arteries. The external carotid arteries are patent. IMPRESSION: 1. There is no sonographic evidence of hemodynamically significant stenosis in the right or left carotid arterial system. 2. Antegrade flow is shown in the vertebral arteries. Electronically signed by: Attila Montes M.D. 11/20/2016 7:06 AM Dictated Date/Time: 11/20/2016 7:04 AM
--- NOTE | 2016-11-20 07:28 | DIAGNOSTIC IMAGING REPORT ---
Brain MRI WITHOUT CONTRAST HISTORY: altered mental status TECHNIQUE: Multiplanar multisequence MRI of the brain was performed without the use of contrast. COMPARISON STUDY: Head CT 11/19/2016. FINDINGS: There is no mass, hematoma, midline shift, or acute infarct. The paranasal sinuses are clear. The mastoid or cells are clear. The ventricles and sulci demonstrate mild age-related involutional changes. Scattered foci of T2 hyperintensity seen within the periventricular and subcortical white matter are nonspecific but suggestive of mild microvascular ischemic changes. The major vascular flow voids at the skull base are well-maintained. IMPRESSION: No acute intracranial abnormality. Scattered foci of T2 hyperintensity seen within the periventricular and subcortical white matter are nonspecific but favor microvascular ischemic change. Electronically signed by: Jase Rodriguez M.D. 11/20/2016 7:26 AM Dictated Date/Time: 11/20/2016 7:23 AM
--- NOTE | 2016-11-20 08:07 | DIAGNOSTIC IMAGING REPORT ---
LEFT HIP 2 VIEWS CLINICAL HISTORY: Left hip pain. FINDINGS: AP and frog-leg views of the left hip are obtained. No prior studies are available for comparison at the time of dictation. The skeletal structures are osteopenic. There is mild degenerative joint space narrowing in the left hip. Sclerotic change is identified in the pubic symphysis. The overlying soft tissues are within normal limits. Calcified phleboliths are seen in the pelvis. IMPRESSION: Osteopenia and mild arthritic change as above. No fracture is identified. Electronically signed by: Attila Montes M.D. 11/20/2016 8:05 AM Dictated Date/Time: 11/20/2016 8:04 AM
[2016-11-20] MEDS: FUROSEMIDE 20 MG TAB PO SCH (08:44)
[2016-11-20] MEDS: CHOLECALCIFEROL 1000 INTER.UNIT TAB PO SCH (08:44)
[2016-11-20] MEDS: ASPIRIN 81 MG ECTAB PO SCH (08:44)
[2016-11-20] MEDS: CYANOCOBALAMIN 500 MCG TAB (VIT B-12) PO SCH (08:44)
[2016-11-20] MEDS: LABETALOL HCL 200 MG TAB PO SCH ×2 (08:44→21:13)
[2016-11-20] MEDS: NITROGLYCERIN 0.2 MG/HR PATCH TD SCH (08:45)
[2016-11-20] MEDS: NIFEdipine 30 MG CR TAB PO SCH (08:45)
[2016-11-20] MEDS ORDERED: NIFEdipine 30 MG CR TAB PO SCH ×2 (09:00)
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
--- NOTE | 2016-11-20 11:17 | Neurology Progress Notes ---
Neurology Progress Note Date of Service Nov 20, 2016. Subjective two daugthers and a granddaughter give history of event. For the past 2 months Jessie has been having episodes of hallucinations. Yesterday she fell on her left hip. This am she was found outside in the cold with no shoes on and just her nightgown apparently crawled out of her window because she thought people where in the basement. She does not remember this or why she is in the hospital. She lives alone and up to this point she was making out her own bills and taking her own medications. Her son comes in and check that the bills are made out correctly but the daughters don't think she has been taking her medications appropriately. She had an infection on her left leg that they were treating with antibiotics but the second round of antibiotics were not taken. She is very [place] and tries to read people lips. her only current complaint is pain in her left hip. Today a daughter is in the room and states she seems better today. Jessie states she is tired and then starts crying. She states she is having left ear pain but daughter feels it may be the way she slept last night and from the fall. denies and new hallucinations but still recounts the hallucinations that occurred when she fled her home. Objective Date Time Temp Pulse Resp B/P Pulse Ox O2 Delivery O2 Flow Rate FiO2 11/20/16 08:00 Room Air 11/20/16 07:27 36.8 61 16 194/76 97 Room Air 190/80 11/20/16 04:01 36.9 74 20 163/62 96 Room Air 11/20/16 04:00 96 Room Air 11/20/16 00:28 36.8 78 20 162/74 97 Room Air 11/20/16 00:00 97 Room Air 11/19/16 20:00 97 Room Air 11/19/16 19:54 36.6 76 18 182/84 97 Room Air 11/19/16 15:46 36.5 78 19 161/68 98 Room Air 11/19/16 13:30 36.5 16 169/72 97 Room Air 11/19/16 12:52 87 11/19/16 12:30 36.5 79 18 153/58 97 Room Air 11/19/16 12:00 36.1 76 18 153/78 100 Mask 10.0 11/19/16 11:30 35.7 66 16 156/54 99 Mask 10.0 11/19/16 11:22 35.6 80 18 157/49 99 Mask 10.0 11/19/16 11:02 35.4 85 20 122/104 99 Mask 10.0 Last 24 Hours Test 11/19/16 11:00 11/19/16 16:05 11/19/16 16:42 11/19/16 16:59 Urine Color YELLOW Urine Appearance CLEAR Urine pH 5.0 Urine Specific [place] 1.008 Urine Protein TRACE Urine Glucose (UA) NEG Urine Ketones NEG Urine Occult Blood NEG Urine Nitrite NEG Urine Bilirubin NEG Urine Urobilinogen NEG Urine Leukocyte Esterase NEG Urine WBC (Auto) 0 /hpf Urine RBC (Auto) 0-4 /hpf Urine Hyaline Casts (Auto) 1-5 /lpf Urine Epithelial Cells (Auto) 0-5 /lpf Urine Bacteria (Auto) NEG Urine Opiates Screen NEG Urine Methadone, Qualitative NEG Urine Barbiturates NEG Urine Phencyclidine (PCP) Level NEG Ur Amphetamine/Methamphetamine NEG MDMA (Ecstasy) Screen NEG Urine Benzodiazepines Screen NEG Urine Cocaine Metabolite NEG Urine Marijuana (THC) NEG White Blood Count 6.37 K/uL Red Blood Count 3.64 M/uL Hemoglobin 10.4 g/dL Hematocrit 31.4 % Mean Corpuscular Volume 86.3 fL Mean Corpuscular Hemoglobin 28.6 pg Mean Corpuscular Hemoglobin Concent 33.1 g/dl Platelet Count 163 K/uL Mean Platelet Volume 10.8 fL Neutrophils (%) (Auto) 74.8 % Lymphocytes (%) (Auto) 16.3 % Monocytes (%) (Auto) 8.2 % Eosinophils (%) (Auto) 0.2 % Basophils (%) (Auto) 0.3 % Neutrophils # (Auto) 4.77 K/uL Lymphocytes # (Auto) 1.04 K/uL Monocytes # (Auto) 0.52 K/uL Eosinophils # (Auto) 0.01 K/uL Basophils # (Auto) 0.02 K/uL RDW Standard Deviation 45.3 fL RDW Coefficient of Variation 14.2 % Immature Granulocyte % (Auto) 0.2 % Immature Granulocyte # (Auto) 0.01 K/uL Sodium Level 144 mmol/L Potassium Level 4.1 mmol/L Chloride Level 111 mmol/L Carbon Dioxide Level 21 mmol/L Anion Gap 12.0 mmol/L Blood Urea Nitrogen 48 mg/dl Creatinine 1.50 mg/dl Est Creatinine Clear Calc Drug Dose 30.5 ml/min Estimated GFR () 37.7 Estimated GFR (Non- 32.6 BUN/Creatinine Ratio 31.7 Random Glucose 70 mg/dl Calcium Level 9.0 mg/dl Vitamin B12 Level 1690 pg/mL Folate 14.59 ng/mL Bedside Glucose 58 mg/dl 64 mg/dl Test 11/19/16 17:17 11/19/16 20:56 11/20/16 05:14 11/20/16 07:01 Bedside Glucose 101 mg/dl 108 mg/dl 84 mg/dl White Blood Count 4.93 K/uL Red Blood Count 3.57 M/uL Hemoglobin 10.1 g/dL Hematocrit 30.9 % Mean Corpuscular Volume 86.6 fL Mean Corpuscular Hemoglobin 28.3 pg Mean Corpuscular Hemoglobin Concent 32.7 g/dl RDW Standard Deviation 45.4 fL RDW Coefficient of Variation 14.4 % Platelet Count 158 K/uL Mean Platelet Volume 10.7 fL Sodium Level 146 mmol/L Potassium Level 3.7 mmol/L Chloride Level 113 mmol/L Carbon Dioxide Level 23 mmol/L Anion Gap 10.0 mmol/L Blood Urea Nitrogen 33 mg/dl Creatinine 1.20 mg/dl Est Creatinine Clear Calc Drug Dose 38.1 ml/min Estimated GFR () 49.4 Estimated GFR (Non- 42.7 BUN/Creatinine Ratio 27.3 Random Glucose 72 mg/dl Estimated Average Glucose 128 mg/dl Hemoglobin A1c 6.1 % Calcium Level 8.4 mg/dl Magnesium Level 2.0 mg/dl Total Creatine Kinase 1286 U/L Random Vancomycin Level 17.2 mcg/ml Imaging: Carotid doppler- There is no sonographic evidence of hemodynamically significant stenosis in the right or left carotid arterial system. Antegrade flow is shown in the vertebral arteries. MRI brain without-No acute intracranial abnormality. Scattered foci of T2 hyperintensity seen within the periventricular and subcortical white matter are nonspecific but favor microvascular ischemic change. Exam: Physical Exam: Constitutional: , appearance nourished, healthy, obese Ears, Nose, Mouth and Throat: mucous membranes moist, no injection and skin normal, eyes normal Cardiovascular: normal S-1 and S-2 and regular rate and rhythm Respiratory: clear to auscultation (CTA) and no rales, rhonchi or wheeze Musculoskeletal: non pitting peripheral edema Skin: no stigmata of neurocutaneous disease noted and normal and intact Eyes: extraocular muscles intact (EOMI) and pupils equal, round and reactive to light (PERRL) NEUROLOGIC EXAMINATION: Mental status: Alert and interactive Oriented knows she is in the hospital in [place] Oriented to person Speech fluent with no evidence of aphasia Cranial Nerves smile eye brow raise symmetric, tongue midline Sensory: no sensory deficits light touch Coordination: finger to nose slight hesitation but likely due to [place] Gait/Stance: lying in bed Motor: Negative for pronator drift of out stretched arms with eyes closed. 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 plantar flex ext Current Inpatient Medications Medications (Trade) Dose Ordered Sig/Anselmo Route Start Time Stop Time Status Last Admin Dose Admin Sodium Chloride (Nss 1000ml) 1,000 ml @ 100 mls/hr Q10H IV 11/19/16 12:26 12/19/16 12:25 11/20/16 00:38 100 MLS/HR Acetaminophen (Tylenol Tab) 650 mg Q4H PRN PO 11/19/16 12:30 12/19/16 12:29 Ondansetron HCl (Zofran Inj) 4 mg Q6H PRN IV 11/19/16 12:30 12/19/16 12:29 Vancomycin HCl (Consult) 1 ea UD PRN N/A 11/19/16 13:45 12/19/16 13:44 Heparin Sodium (Porcine) (Heparin Sq 5000 Unit/0.5ml) 5,000 unit Q8 SQ 11/19/16 14:00 12/19/16 13:59 11/20/16 06:26 5,000 UNIT Aspirin (Ecotrin Tab) 81 mg DAILY PO 11/20/16 09:00 12/20/16 08:59 11/20/16 08:44 81 MG Cholecalciferol (Vitamin D Tab) 1,000 inter.unit DAILY PO 11/20/16 09:00 12/20/16 08:59 11/20/16 08:44 1,000 INTER.UNIT Furosemide (Lasix Tab) 20 mg QAM PO 11/20/16 09:00 12/20/16 08:59 11/20/16 08:44 20 MG Labetalol HCl (Normodyne Tab) 200 mg BID PO 11/19/16 21:00 12/19/16 20:59 11/20/16 08:44 200 MG Levothyroxine Sodium (Synthroid Tab) 75 mcg DAILYBB PO 11/20/16 06:00 12/20/16 05:59 11/20/16 06:25 75 MCG Nitroglycerin (Nitro-Dur 0.2 Mg/Hr Patch) 1 patch DAILY TD 11/20/16 09:00 12/20/16 08:59 11/20/16 08:45 1 PATCH Simvastatin (Zocor Tab) 10 mg QPM PO 11/19/16 21:00 12/19/16 20:59 11/19/16 20:50 10 MG Cyanocobalamin (Vitamin B-12 Tab) 1,000 mcg QAM PO 11/20/16 09:00 12/20/16 08:59 11/20/16 08:44 1,000 MCG Aztreonam (Consult) 1 ea UD PRN N/A 11/19/16 13:45 12/19/16 13:44 Insulin Aspart (novoLOG ASPART) SLIDING SCALE If C... ACHS SC 11/19/16 16:15 12/19/16 16:14 Glucose (Glucose 40% Gel) 15-30 GRAMS 15 GRAMS... UD PRN PO 11/19/16 12:45 12/19/16 12:44 Glucose (Glucose Chew Tab) 4-8 Tablets 4 Tabl... UD PRN PO 11/19/16 12:45 12/19/16 12:44 Dextrose (Dextrose 50% 50ML Syringe) 25-50ML OF 50% DW IV FOR... 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 MRI brain no lesions or malformation- scattered white matter changes 2. hip xray left -pain with movement- no fracture 3. B12, Folate RPR for reversible causes of dementia RPR still pending folate and B12 good levels 4. kidney function should be evaluated -will need the MRI without contrast 5. carotid doppler -no significant stenosis 6. Zoloft would be a good option for depression-will await psychiatry recommendations 7. PT/OT for discharge needs 8. will need more supervision at home 9. fall precautions Will see her back in our office in 2-4 week and Aricept may be an option at that time, Liliam Campo PAC schedule I have seen and discussed above patient with Dr Liliam Becker, neurology Pt seen and examined. She is awake, alert, does not recall why she is in the hospital. Mild complaint of neck pain. Neck is palpated and is nontender, supple no neck weakness noted MRI, labs reviewed. Pt has Alzheimer's dementia, with mild superimposed delirium which is improving. Dr Foote has started low dose Seroquel which is very reasonable. May need an ssri in the future. Will start cholinomimetics as oupt. Pt has some neck pain and had fallen. Will order Xray of cervical spine. If patient continues to be symptomatic may need CT of neck noncontrast. VINEET Becker MD
[2016-11-20] MEDS ORDERED: VANCOMYCIN INJ 1,250 MG in SODIUM CHLORIDE 0.9% 250ML 250 ML IV SCH (12:00)
[2016-11-20] MEDS ORDERED: HydrALAZINE HCL 20 MG/ML VIAL IV. STA (12:09)
[2016-11-20] MEDS: ACETAMINOPHEN 325 MG TAB PO PRN (12:21)
--- NOTE | 2016-11-20 12:24 | Progress Note ---
Subjective Date of Service: Nov 20, 2016. Subjective Pt evaluation today including: conversation w/ patient, physical exam, lab review, review of studies, review of inpatient medication list Saw/examined the patient in room 229 Daughter is in the room with the patient Patient is somewhat confused, cannot recall all the events of what happened Most of the history is obtained from records and the daughter: This is an 81 year old female with PMH of CAD s/p stenting, DM2, LIA, HTN, HLD, Hypothyroidism who lives alone has been more confused lately. She fell down the stairs the day prior to arrival. On the day of arrival, son went to check on the patient; had no answer; police was called and the patient was found 500 yards away, unknown how long she was outside; upon presentation to the ER she was found to be hypothermic; Rafiq huggar and warmed IVFs have since alleviated this issue. Patient remains confused and the question is if this is her baseline ; as per daughter, the patient is slightly confused at home and has been getting less sleep lately due to a paranoia and fear of intruders. Her about a year ago and the decline likely started at this time. During exam today: patient is oriented to person No other issues to note; she is eating well. Problem List Medical Problems: (1) Acute kidney injury Status: Acute (2) Altered mental status Status: Acute Medications Current Inpatient Medications Medications (Trade) Dose Ordered Sig/Anselmo Route Start Time Stop Time Status Last Admin Dose Admin Sodium Chloride (Nss 1000ml) 1,000 ml @ 100 mls/hr Q10H IV 11/19/16 12:26 12/19/16 12:25 11/20/16 00:38 100 MLS/HR Acetaminophen (Tylenol Tab) 650 mg Q4H PRN PO 11/19/16 12:30 12/19/16 12:29 Ondansetron HCl (Zofran Inj) 4 mg Q6H PRN IV 11/19/16 12:30 12/19/16 12:29 Vancomycin HCl (Consult) 1 ea UD PRN N/A 11/19/16 13:45 12/19/16 13:44 Heparin Sodium (Porcine) (Heparin Sq 5000 Unit/0.5ml) 5,000 unit Q8 SQ 11/19/16 14:00 12/19/16 13:59 11/20/16 06:26 5,000 UNIT Aspirin (Ecotrin Tab) 81 mg DAILY PO 11/20/16 09:00 12/20/16 08:59 11/20/16 08:44 81 MG Cholecalciferol (Vitamin D Tab) 1,000 inter.unit DAILY PO 11/20/16 09:00 12/20/16 08:59 11/20/16 08:44 1,000 INTER.UNIT Furosemide (Lasix Tab) 20 mg QAM PO 11/20/16 09:00 12/20/16 08:59 11/20/16 08:44 20 MG Labetalol HCl (Normodyne Tab) 200 mg BID PO 11/19/16 21:00 12/19/16 20:59 11/20/16 08:44 200 MG Levothyroxine Sodium (Synthroid Tab) 75 mcg DAILYBB PO 11/20/16 06:00 12/20/16 05:59 11/20/16 06:25 75 MCG Nitroglycerin (Nitro-Dur 0.2 Mg/Hr Patch) 1 patch DAILY TD 11/20/16 09:00 12/20/16 08:59 11/20/16 08:45 1 PATCH Simvastatin (Zocor Tab) 10 mg QPM PO 11/19/16 21:00 12/19/16 20:59 11/19/16 20:50 10 MG Cyanocobalamin (Vitamin B-12 Tab) 1,000 mcg QAM PO 11/20/16 09:00 12/20/16 08:59 11/20/16 08:44 1,000 MCG Aztreonam (Consult) 1 ea UD PRN N/A 11/19/16 13:45 12/19/16 13:44 Insulin Aspart (novoLOG ASPART) SLIDING SCALE If C... ACHS SC 11/19/16 16:15 12/19/16 16:14 Glucose (Glucose 40% Gel) 15-30 GRAMS 15 GRAMS... UD PRN PO 11/19/16 12:45 12/19/16 12:44 Glucose (Glucose Chew Tab) 4-8 Tablets 4 Tabl... UD PRN PO 11/19/16 12:45 12/19/16 12:44 Dextrose (Dextrose 50% 50ML Syringe) 25-50ML OF 50% DW IV FOR... UD PRN IV 11/19/16 12:45 12/19/16 12:44 Glucagon (Glucagon Inj) 1 mg UD PRN SQ 11/19/16 12:45 12/19/16 12:44 Nifedipine (Procardia Xl Tab) 90 mg QAM PO 11/20/16 09:00 12/20/16 08:59 11/20/16 08:45 90 MG Miscellaneous 1 ea 1 ea DAILY@21 N/A 11/19/16 21:00 12/19/16 20:59 11/19/16 20:59 1 EA Aztreonam 1000 mg/ Dextrose 110 ml @ 110 mls/hr DAILY@06,, IV 11/19/16 22:00 11/21/16 21:59 11/20/16 08:47 110 MLS/HR Vancomycin HCl/ Sodium Chloride (Vancomycin Inj/ Nss 250ml) 275 ml @ 125 mls/hr DAILY@1200 IV 11/20/16 12:00 11/22/16 14:11 Objective Vital Signs Date Time Temp Pulse Resp B/P Pulse Ox O2 Delivery O2 Flow Rate FiO2 11/20/16 11:38 36.8 61 16 185/70 97 Room Air 11/20/16 08:00 Room Air 11/20/16 07:27 36.8 61 16 194/76 97 Room Air 190/80 11/20/16 04:01 36.9 74 20 163/62 96 Room Air 11/20/16 04:00 96 Room Air 11/20/16 00:28 36.8 78 20 162/74 97 Room Air 11/20/16 00:00 97 Room Air 11/19/16 20:00 97 Room Air 11/19/16 19:54 36.6 76 18 182/84 97 Room Air 11/19/16 15:46 36.5 78 19 161/68 98 Room Air 11/19/16 13:30 36.5 16 169/72 97 Room Air 11/19/16 12:52 87 11/19/16 12:30 36.5 79 18 153/58 97 Room Air 11/19/16 12:00 36.1 76 18 153/78 100 Mask 10.0 Physical Exam General Appearance: no apparent distress, + pertinent finding (disoriented) Respiratory/Chest: lungs clear, normal breath sounds, no respiratory distress, no accessory muscle use Cardiovascular: regular rate, rhythm, no edema, no murmur Abdomen: normal bowel sounds, non tender, soft Extremities: no pedal edema, + pertinent finding (scratches on lower extremities - no erythema noted) Neurologic/Psychiatric: alert, + depressed affect, + disoriented Skin: normal color Laboratory Results Last 24 Hours Test 11/19/16 16:05 11/19/16 16:42 11/19/16 16:59 11/19/16 17:17 White Blood Count 6.37 K/uL Red Blood Count 3.64 M/uL Hemoglobin 10.4 g/dL Hematocrit 31.4 % Mean Corpuscular Volume 86.3 fL Mean Corpuscular Hemoglobin 28.6 pg Mean Corpuscular Hemoglobin Concent 33.1 g/dl Platelet Count 163 K/uL Mean Platelet Volume 10.8 fL Neutrophils (%) (Auto) 74.8 % Lymphocytes (%) (Auto) 16.3 % Monocytes (%) (Auto) 8.2 % Eosinophils (%) (Auto) 0.2 % Basophils (%) (Auto) 0.3 % Neutrophils # (Auto) 4.77 K/uL Lymphocytes # (Auto) 1.04 K/uL Monocytes # (Auto) 0.52 K/uL Eosinophils # (Auto) 0.01 K/uL Basophils # (Auto) 0.02 K/uL RDW Standard Deviation 45.3 fL RDW Coefficient of Variation 14.2 % Immature Granulocyte % (Auto) 0.2 % Immature Granulocyte # (Auto) 0.01 K/uL Sodium Level 144 mmol/L Potassium Level 4.1 mmol/L Chloride Level 111 mmol/L Carbon Dioxide Level 21 mmol/L Anion Gap 12.0 mmol/L Blood Urea Nitrogen 48 mg/dl Creatinine 1.50 mg/dl Est Creatinine Clear Calc Drug Dose 30.5 ml/min Estimated GFR () 37.7 Estimated GFR (Non- 32.6 BUN/Creatinine Ratio 31.7 Random Glucose 70 mg/dl Calcium Level 9.0 mg/dl Vitamin B12 Level 1690 pg/mL Folate 14.59 ng/mL Bedside Glucose 58 mg/dl 64 mg/dl 101 mg/dl Test 11/19/16 20:56 11/20/16 05:14 11/20/16 07:01 11/20/16 11:33 Bedside Glucose 108 mg/dl 84 mg/dl 159 mg/dl White Blood Count 4.93 K/uL Red Blood Count 3.57 M/uL Hemoglobin 10.1 g/dL Hematocrit 30.9 % Mean Corpuscular Volume 86.6 fL Mean Corpuscular Hemoglobin 28.3 pg Mean Corpuscular Hemoglobin Concent 32.7 g/dl RDW Standard Deviation 45.4 fL RDW Coefficient of Variation 14.4 % Platelet Count 158 K/uL Mean Platelet Volume 10.7 fL Sodium Level 146 mmol/L Potassium Level 3.7 mmol/L Chloride Level 113 mmol/L Carbon Dioxide Level 23 mmol/L Anion Gap 10.0 mmol/L Blood Urea Nitrogen 33 mg/dl Creatinine 1.20 mg/dl Est Creatinine Clear Calc Drug Dose 38.1 ml/min Estimated GFR () 49.4 Estimated GFR (Non- 42.7 BUN/Creatinine Ratio 27.3 Random Glucose 72 mg/dl Estimated Average Glucose 128 mg/dl Hemoglobin A1c 6.1 % Calcium Level 8.4 mg/dl Magnesium Level 2.0 mg/dl Total Creatine Kinase 1286 U/L Random Vancomycin Level 17.2 mcg/ml Assessment and Plan This is an 81 year old female with PMH of CAD s/p stenting, DM2, LIA, HTN, HLD, Hypothyroidism presented due to mental status changes Altered Mental Status * Likely an acute process over an underlying chronic dementia * patient with recent loss of , lives alone, paranoia/hallucinations * found outside the house; unknown for how long * no longer hypothermic * Appreciate neurology and psychiatry input * Head CT negative * Brain MRI - microvascular changes * Seroquel added as per psychiatry due to underlying insomnia/confusion * PT/OT eval and treat * will need discharge planning eval * lives alone - will need family support at all times or discharge to SNF Rhabdomyolysis * CPK level ~ 1000 * likely due to fall and unknown amount of time outside * will continue IVFs Leukocytosis, resolved * possibly related to lower extremity cellulitis * on aztreonam + vancomycin * WBC now resolved * blood cultures + urine culture pending CAD s/p stenting * no chest pain, no acute process * continue ASA, b-tammie, statin HTN * blood pressure elevated * +anxiety, +pain * continue nifedipine, labetalo Hypothyroidism * TSH wnl * continue home dose of synthroid DVT ppx * subq heparin DNR
--- NOTE | 2016-11-20 12:55 | Clinical Documentation Query ---
QUERY 1 OF [address] PARISH, In your clinical opinion is this patient being managed for: ( ) Metabolic encephalopathy ( ) Other explanation of clinical findings (Please Explain) ( ) Unable to determine (Please Define) ( ) Need to Discuss ( X ) Not Agree The medical record reflects the following clinical findings, treatment, and risk factors. Clinical Indicators: 81 yo female presenting with an altered mental status noted to be likely due to an acute process with chronic dementia. 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 Clinical Indicators: Initial BUN 52, Cr 2.10, which has trended down to BUN 33, Cr 1.2. GFR range over the past 2 years has been 20.8-32.6, total CK peaked at 1286 Treatment: IV fluids, monitor PRP, IV Vancomycin and Aztreonam Risk Factors: age, rhabdomyolysis, CKD, HTN, DM Please clarify and document your clinical opinion in the progress notes and discharge summary. Terms such as "probable", "suspected", "likely", "questionable", "possible", or "still to be ruled out" are acceptable. IF IN AGREEMENT, YOU MUST DOCUMENT ABOVE DIAGNOSTIC STATEMENT IN DAILY PROGRESS NOTES AND DISCHARGE SUMMARY. This document is not part of the patient's record. Thank You, Caty Crews, RN [phone]
--- NOTE | 2016-11-20 13:12 | Psychiatric Consultation ---
Consultation Identifying Data Ms. Piña is an 81 yo female who is a and lives alone in [place]. She was admitted for hypothermia after wandering. Consult is for memory issues and hallucinations. She has no prior psych history. Chief Complaint "It's rough at night, I saw those men". History of Present Illness Family has noticed ongoing decline in memory and also reports of hallucinations and increase in paranoia about finances following shoulder surgery in May 2016. Her symptoms have waxed/waned but significant increase in past 2 months. Her daughter Karla was at bedside and provided additional history, confirmed report of events on chart. Ms. Piña reports sundowning phenomena in that as evening goes on she feels more confused and sees men in her house by the tv. She denies a specific aud ramires but went to basement to check for an intruder. She then broke out of home causing injuries described elsewhere. Daughter is very concerned as not clear how long she was outside and she hasn't previously wandered, obviously they are concerned that she can no longer live at home. She has been staying hydrated on her own up to this point with meals on wheels and family checking in on her. She is paranoid about people recording her, didn 't want med student to write things down or she may have to go to court and doesn't trust that her finances are correct even when family/daughter/POA goes over things. Neurology also assessed patient and work up included MRI with microvasculature changes, no bleed/acute stroke, nl TSH, nl B12 and folate, RPR pending but no history to suggest neurosyphilis. There was some mention of Aricept, perhaps as outpatient. More acute question was starting Seroquel vs Zoloft. Patient doesn't necessarily endorse depression, daughter states has always had worry over her finances. 4 years ago and "hasn't gotten over it". Past Psychiatric History Current OP Treatment: no current treatment Prior OP Treatment: no prior treatment no history of inpatient hospitalizations or suicide attempts Past Medical/Surgical History Problem List: (1) Fall at home (2) Acute kidney injury (3) DJD of shoulder (4) Osteoarthritis of left shoulder (5) Diabetes (6) Hypertension (7) Hypothermia (8) CAD (coronary artery disease) (9) Sleep apnea (10) Hypothyroidism (11) Hyperlipidemia (12) H/O shoulder surgery (13) S/P coronary artery stent placement (14) S/p right ankle surgery Allergies Allergies: Coded Allergies: Codeine (Verified Allergy, Intermediate, Nausea, 05/15/16) Morphine (Verified Allergy, Unknown, nausea, 05/15/16) Penicillins (Unverified Adverse Reaction, Unknown, UNKNOWN, 11/19/16) Home Medications Scheduled Aspirin (Aspirin Chewable), 81 MG PO DAILY Cephalexin Monohydrate (Keflex), 500 MG PO TID Cholecalciferol (Vitamin D3), 1 TAB PO DAILY Cyanocobalamin (Vitamin B12), 1,000 MCG PO QAM Furosemide (Lasix), 20 MG PO QAM Glipizide Xl (Glucotrol Xl), 10 MG PO QAM Labetalol Hcl (Normodyne), 200 MG PO BID Levothyroxine Sodium (Levothyroxine Sodium), 75 MCG PO QAM Metronidazole (Flagyl), 500 MG PO BID Nifedipine Ext Rel (Procardia Xl Ext Rel), 30 MG PO QAM Nifedipine Ext Rel (Procardia Xl Ext Rel), 60 MG PO QAM Nitroglycerin (Nitroglycerin Transdermal), TD DAILY Simvastatin (Zocor), 10 MG PO QPM Family History formal family psych history is denied Alcohol Use Alcohol Use In Past 12 Months: No Substance History denied Personal History Education: graduated from high school Work History: retired Relationship History: (58 years prior to passing) Children: 5 girls, 1 boy, all local except 1 daughter in [place] Legal History: none Abuse History: none Review of Systems Psych: denies symptoms other than stated above Constitutional: fatigue, left ear/neck pain Cardiovascular: denied GI: denied Neurologic: denied Remainder of 10 body systems also reviewed and denied other than noted above. Examination Vital Signs Vital Signs Past 12 Hours Date Time Temp Pulse Resp B/P Pulse Ox O2 Delivery O2 Flow Rate FiO2 11/20/16 12:00 Room Air 11/20/16 11:38 36.8 61 16 185/70 97 Room Air 11/20/16 08:00 Room Air 11/20/16 07:27 36.8 61 16 194/76 97 Room Air 190/80 11/20/16 04:01 36.9 74 20 163/62 96 Room Air 11/20/16 04:00 96 Room Air Laboratory Results Last 24 Hours Test 11/19/16 16:05 11/19/16 16:42 11/19/16 16:59 11/19/16 17:17 White Blood Count 6.37 K/uL Red Blood Count 3.64 M/uL Hemoglobin 10.4 g/dL Hematocrit 31.4 % Mean Corpuscular Volume 86.3 fL Mean Corpuscular Hemoglobin 28.6 pg Mean Corpuscular Hemoglobin Concent 33.1 g/dl Platelet Count 163 K/uL Mean Platelet Volume 10.8 fL Neutrophils (%) (Auto) 74.8 % Lymphocytes (%) (Auto) 16.3 % Monocytes (%) (Auto) 8.2 % Eosinophils (%) (Auto) 0.2 % Basophils (%) (Auto) 0.3 % Neutrophils # (Auto) 4.77 K/uL Lymphocytes # (Auto) 1.04 K/uL Monocytes # (Auto) 0.52 K/uL Eosinophils # (Auto) 0.01 K/uL Basophils # (Auto) 0.02 K/uL RDW Standard Deviation 45.3 fL RDW Coefficient of Variation 14.2 % Immature Granulocyte % (Auto) 0.2 % Immature Granulocyte # (Auto) 0.01 K/uL Sodium Level 144 mmol/L Potassium Level 4.1 mmol/L Chloride Level 111 mmol/L Carbon Dioxide Level 21 mmol/L Anion Gap 12.0 mmol/L Blood Urea Nitrogen 48 mg/dl Creatinine 1.50 mg/dl Est Creatinine Clear Calc Drug Dose 30.5 ml/min Estimated GFR () 37.7 Estimated GFR (Non- 32.6 BUN/Creatinine Ratio 31.7 Random Glucose 70 mg/dl Calcium Level 9.0 mg/dl Vitamin B12 Level 1690 pg/mL Folate 14.59 ng/mL Bedside Glucose 58 mg/dl 64 mg/dl 101 mg/dl Test 11/19/16 20:56 11/20/16 05:14 11/20/16 07:01 11/20/16 11:33 Bedside Glucose 108 mg/dl 84 mg/dl 159 mg/dl White Blood Count 4.93 K/uL Red Blood Count 3.57 M/uL Hemoglobin 10.1 g/dL Hematocrit 30.9 % Mean Corpuscular Volume 86.6 fL Mean Corpuscular Hemoglobin 28.3 pg Mean Corpuscular Hemoglobin Concent 32.7 g/dl RDW Standard Deviation 45.4 fL RDW Coefficient of Variation 14.4 % Platelet Count 158 K/uL Mean Platelet Volume 10.7 fL Sodium Level 146 mmol/L Potassium Level 3.7 mmol/L Chloride Level 113 mmol/L Carbon Dioxide Level 23 mmol/L Anion Gap 10.0 mmol/L Blood Urea Nitrogen 33 mg/dl Creatinine 1.20 mg/dl Est Creatinine Clear Calc Drug Dose 38.1 ml/min Estimated GFR () 49.4 Estimated GFR (Non- 42.7 BUN/Creatinine Ratio 27.3 Random Glucose 72 mg/dl Estimated Average Glucose 128 mg/dl Hemoglobin A1c 6.1 % Calcium Level 8.4 mg/dl Magnesium Level 2.0 mg/dl Total Creatine Kinase 1286 U/L Random Vancomycin Level 17.2 mcg/ml Mental Examination During interview pt is: cooperative Appearance: appropriately groomed Eye contact is: good Motor behavior is: no abnormal motor movements Speech: normal in rate, rhythm & volume Affect: anxious Mood is: anxious Thought process: circumstantial Thought content: paranoid, delusions Suicidal thought are: denied Homicidal thoughts are: denied Hallucinations: denies auditory, denies visual Cognition: language grossly intact Intelligence estimated to be: consistent with level of education Insight: poor Judgement: poor Impression / Recommendations Impression 81 yo female with history of cognitive decline, no prior psych history, admitted with hypothermia after wandering due to response to internal stimuli and paranoia. dx demential likely alzheimer's type by neurology with superimposed delirium. MSE better than expected from circumstances of admission. Reversible causes of dementia excluded. Has had ongoing grief over loss of but doubt pseudodementia or depression with psychotic features based on overall history/clinical presentation Recommendations (1) Altered mental status defer Aricept to neurology/medical team, family aware patient is unable to live alone for paranoid delusions/restlessness related to dementia would recommend trial of Seroquel. Reviewed with daughter than need to address paranoia acutely and concerning that response to illusions/hallucination likely resulted in wandering /hypothermia/dehydration justifies use given FDA risks warnings re: risks of in elderly. Patient and daughter karla in agreement following risks/ benefits/alternatives discussion. Monitor sugars. Starting dose 12. 5 mg Seroquel hs to assess tolerability as fall risk. symptoms primarily pm so hopefully can avoid daytime dosing.
--- NOTE | 2016-11-20 14:03 | Pharmacy Progress Note ---
Pharmacy Antibiotic Prog Note Date of Service: Nov 20, 2016. Subjective: The patient is currently receiving aztreonam 1g IV q8h. Patient received a 1x dose of vancomycin 2100mg IV x 1 dose of vancomycin. The patient is currently on day #2 of aztreonam IV and on day #2 of vancomycin IV. Objective: Height (Feet): 5 Height (Inches): 3.00 Weight (Kilograms): 80.100 Levels: Item Value Date Time Random Vancomycin Level 17.2 mcg/ml 11/20/16 0514 Lab Results (24hrs): Laboratory Tests Test 11/19/16 16:05 11/20/16 05:14 BUN/Creatinine Ratio 31.7 27.3 Blood Urea Nitrogen 48 mg/dl 33 mg/dl Creatinine 1.50 mg/dl 1.20 mg/dl White Blood Count 6.37 K/uL 4.93 K/uL Red Blood Count 3.64 M/uL Hemoglobin 10.4 g/dL Hematocrit 31.4 % Mean Corpuscular Volume 86.3 fL Mean Corpuscular Hemoglobin 28.6 pg Mean Corpuscular Hemoglobin Concent 33.1 g/dl Platelet Count 163 K/uL Mean Platelet Volume 10.8 fL Neutrophils (%) (Auto) 74.8 % Lymphocytes (%) (Auto) 16.3 % Monocytes (%) (Auto) 8.2 % Eosinophils (%) (Auto) 0.2 % Basophils (%) (Auto) 0.3 % Neutrophils # (Auto) 4.77 K/uL Lymphocytes # (Auto) 1.04 K/uL Monocytes # (Auto) 0.52 K/uL Eosinophils # (Auto) 0.01 K/uL Basophils # (Auto) 0.02 K/uL Micro Results: Item Value Date Time Blood Culture Received 11/19/16 1040 Blood Pending Urine Culture - Preliminary Resulted 11/19/16 1100 Urine , Clean Catch NO GROWTH - LESS THAN 1,000 COLONIES/... Blood Culture Received 11/19/16 1410 Blood Pending Assessment & Plan: ASSESSMENT: * Patient is an 81 year-old female admitted with SIRS-unknown source and lower extremity cellulitis. * Patient also has T2DM and ALYSSA. * Pharmacy was consulted on aztreonam IV and vancomycin IV dosing therapies. * Goal trough ~15mcg/ml. * Calculated half-life of ~19 hrs. * Renal function improved to 1.2mg/dl today. * Urine culture and BCx2 are pending in the computer. PLAN: Vancomycin: * Random level came back today therapeutic at 17.2mcg/ml. * Made the maintenance dosing to be 1250mg IV daily (~15.6mg/kg). * Will get a trough level on 11/22 @1130. Once the level comes back, will readjust the dosing regimen accordingly. Aztreonam: * Will continue patient on aztreonam 1g IV q8h for SSTIs dosing. Pharmacy will continue to follow and will adjust dose/frequency as necessary. Thank you
[2016-11-20] MEDS ORDERED: BACLOFEN 10 MG TAB PO ONE (15:00)
--- NOTE | 2016-11-20 20:25 | DIAGNOSTIC IMAGING REPORT ---
C-SPINE ROUTINE 4 OR 5 VIEWS CLINICAL HISTORY: Neck pain. Trauma. Weakness. COMPARISON STUDY: No previous studies for comparison. FINDINGS: There are advanced degenerative changes present with disc space narrowing C4-5 and C5-6 levels. No acute fractures or traumatic subluxations are visualized. Minimal retrolisthesis of C4 on C5 is felt to be arthritic. IMPRESSION: 1. No acute fractures or traumatic subluxations are visualized 2. Advanced degenerative changes the C4-5 and C5-6 levels. Electronically signed by: Jeff Mandel M.D. 11/20/2016 8:23 PM Dictated Date/Time: 11/20/2016 8:22 PM
[2016-11-20] MEDS: SIMVASTATIN 10 MG TAB PO SCH (21:13)
[2016-11-20] MEDS: QUETIAPINE FUMARATE 25 MG TAB PO SCH (21:37)
[2016-11-21] VITALS (8 sets, daily range): BP systolic 134–180; BP diastolic 68–98; PULSE 60–82; TEMP 36.5–37.2; O2SAT 95–97
[2016-11-21] MEDS: LEVOTHYROXINE 75 MCG TAB PO SCH (06:05)
[2016-11-21] MEDS: ACETAMINOPHEN 325 MG TAB PO PRN (06:05)
[2016-11-21] MEDS: AZTREONAM IV 1,000 MG in DEXTROSE 5% 100ML IV SCH (06:07)
[2016-11-21] MEDS: HEPARIN SOD 5000 UNIT/0.5 ML CARP SQ SCH ×3 (06:09→21:19)
[2016-11-21] MEDS: SODIUM CHLORIDE 0.9% 1000ML 1,000 ML IV SCH (06:11)
[2016-11-21 06:19] LABS: HEMATOCRIT 31.8 % (37-47); MEAN CELL VOLUME 87.4 fL (80-100); MEAN CORPUSCULAR HEMOGLOBIN 29.1 pg (25-34); MEAN CORPUSCULAR HGB CONC 33.3 g/dl (32-36); MEAN PLATELET VOLUME 10.4 fL (7.4-10.4); PLATELET COUNT 143 K/uL (130-400); RED BLOOD COUNT 3.64 M/uL (4.2-5.4); WHITE BLOOD COUNT 5.37 K/uL (4.8-10.8)
[2016-11-21 06:49] LABS: BUN/CREATININE RATIO 19.7 (10-20); CALCIUM 8.3 mg/dl (8.5-10.1); CREATININE 1.2 mg/dl (0.60-1.20); MAGNESIUM 1.9 mg/dl (1.8-2.4); POTASSIUM 3.6 mmol/L (3.5-5.1)
[2016-11-21] MEDS: ASPIRIN 81 MG ECTAB PO SCH (08:32)
[2016-11-21] MEDS: NIFEdipine 30 MG CR TAB PO SCH (08:32)
[2016-11-21] MEDS: FUROSEMIDE 20 MG TAB PO SCH (08:32)
[2016-11-21] MEDS: LABETALOL HCL 200 MG TAB PO SCH ×2 (08:32→21:13)
[2016-11-21] MEDS: CYANOCOBALAMIN 500 MCG TAB (VIT B-12) PO SCH (08:32)
[2016-11-21] MEDS: NITROGLYCERIN 0.2 MG/HR PATCH TD SCH (08:33)
[2016-11-21] MEDS: CHOLECALCIFEROL 1000 INTER.UNIT TAB PO SCH (08:33)
[2016-11-21] MEDS: INSULIN ASPART 100 UNITS/ML 3 ML PEN SC SCH ×4 (08:41→21:22)
--- NOTE | 2016-11-21 09:09 | Progress Note ---
Subjective Date of Service: Nov 21, 2016. Subjective Pt evaluation today including: conversation w/ patient, physical exam, lab review, review of studies, conversation w/ telecom sales consultant, review of inpatient medication list Saw/examined the patient in room 229 Slightly confused; oriented to person feeling better than yesterday +weakness; +pain at right knee/left neck Problem List Medical Problems: (1) Acute kidney injury Status: Acute (2) Altered mental status Status: Acute Medications Current Inpatient Medications Medications (Trade) Dose Ordered Sig/Anselmo Route Start Time Stop Time Status Last Admin Dose Admin Sodium Chloride (Nss 1000ml) 1,000 ml @ 100 mls/hr Q10H IV 11/19/16 12:26 12/19/16 12:25 11/21/16 06:11 100 MLS/HR Acetaminophen (Tylenol Tab) 650 mg Q4H PRN PO 11/19/16 12:30 12/19/16 12:29 11/21/16 06:05 650 MG Ondansetron HCl (Zofran Inj) 4 mg Q6H PRN IV 11/19/16 12:30 12/19/16 12:29 Vancomycin HCl (Consult) 1 ea UD PRN N/A 11/19/16 13:45 12/19/16 13:44 Heparin Sodium (Porcine) (Heparin Sq 5000 Unit/0.5ml) 5,000 unit Q8 SQ 11/19/16 14:00 12/19/16 13:59 11/21/16 06:09 5,000 UNIT Aspirin (Ecotrin Tab) 81 mg DAILY PO 11/20/16 09:00 12/20/16 08:59 11/21/16 08:32 81 MG Cholecalciferol (Vitamin D Tab) 1,000 inter.unit DAILY PO 11/20/16 09:00 12/20/16 08:59 11/21/16 08:33 1,000 INTER.UNIT Furosemide (Lasix Tab) 20 mg QAM PO 11/20/16 09:00 12/20/16 08:59 11/21/16 08:32 20 MG Labetalol HCl (Normodyne Tab) 200 mg BID PO 11/19/16 21:00 12/19/16 20:59 11/21/16 08:32 200 MG Levothyroxine Sodium (Synthroid Tab) 75 mcg DAILYBB PO 11/20/16 06:00 12/20/16 05:59 11/21/16 06:05 75 MCG Nitroglycerin (Nitro-Dur 0.2 Mg/Hr Patch) 1 patch DAILY TD 11/20/16 09:00 12/20/16 08:59 11/21/16 08:33 1 PATCH Simvastatin (Zocor Tab) 10 mg QPM PO 11/19/16 21:00 12/19/16 20:59 11/20/16 21:13 10 MG Cyanocobalamin (Vitamin B-12 Tab) 1,000 mcg QAM PO 11/20/16 09:00 12/20/16 08:59 11/21/16 08:32 1,000 MCG Aztreonam (Consult) 1 ea UD PRN N/A 11/19/16 13:45 12/19/16 13:44 Insulin Aspart (novoLOG ASPART) SLIDING SCALE If C... ACHS SC 11/19/16 16:15 12/19/16 16:14 11/21/16 08:41 3 UNITS Glucose (Glucose 40% Gel) 15-30 GRAMS 15 GRAMS... UD PRN PO 11/19/16 12:45 12/19/16 12:44 Glucose (Glucose Chew Tab) 4-8 Tablets 4 Tabl... UD PRN PO 11/19/16 12:45 12/19/16 12:44 Dextrose (Dextrose 50% 50ML Syringe) 25-50ML OF 50% DW IV FOR... UD PRN IV 11/19/16 12:45 12/19/16 12:44 Glucagon (Glucagon Inj) 1 mg UD PRN SQ 11/19/16 12:45 12/19/16 12:44 Nifedipine (Procardia Xl Tab) 90 mg QAM PO 11/20/16 09:00 12/20/16 08:59 11/21/16 08:32 90 MG Miscellaneous 1 ea 1 ea DAILY@21 N/A 11/19/16 21:00 12/19/16 20:59 11/20/16 21:14 1 EA Aztreonam 1000 mg/ Dextrose 110 ml @ 110 mls/hr DAILY@06,14,22 IV 11/19/16 22:00 11/29/16 21:59 11/21/16 06:07 110 MLS/HR Vancomycin HCl/ Sodium Chloride (Vancomycin Inj/ Nss 250ml) 275 ml @ 125 mls/hr DAILY@1200 IV 11/20/16 12:00 11/30/16 11:59 11/20/16 12:17 125 MLS/HR Quetiapine Fumarate (seroQUEL TAB) 12.5 mg HS PO 11/20/16 21:00 12/20/16 20:59 11/20/16 21:37 12.5 MG Objective Vital Signs Date Time Temp Pulse Resp B/P Pulse Ox O2 Delivery O2 Flow Rate FiO2 11/21/16 07:15 36.5 64 18 160/77 97 Room Air 11/21/16 04:00 95 Room Air 11/21/16 03:48 36.7 68 20 152/74 97 Room Air 11/21/16 00:00 36.8 60 20 156/76 97 Room Air 11/21/16 00:00 97 Room Air 11/20/16 20:00 98 Room Air 11/20/16 16:00 Room Air 11/20/16 15:12 37.0 76 16 163/77 95 11/20/16 12:00 Room Air 11/20/16 11:38 36.8 61 16 185/70 97 Room Air Physical Exam General Appearance: no apparent distress, + pertinent finding (+disoriented) Respiratory/Chest: lungs clear, normal breath sounds, no respiratory distress, no accessory muscle use Cardiovascular: regular rate, rhythm, no edema, no murmur Abdomen: normal bowel sounds, non tender, soft Neurologic/Psychiatric: alert, normal mood/affect, + disoriented Laboratory Results Last 24 Hours Test 11/20/16 11:33 11/20/16 16:22 11/20/16 20:23 11/21/16 06:00 Bedside Glucose 159 mg/dl 120 mg/dl 196 mg/dl White Blood Count 5.37 K/uL Red Blood Count 3.64 M/uL Hemoglobin 10.6 g/dL Hematocrit 31.8 % Mean Corpuscular Volume 87.4 fL Mean Corpuscular Hemoglobin 29.1 pg Mean Corpuscular Hemoglobin Concent 33.3 g/dl RDW Standard Deviation 46.3 fL RDW Coefficient of Variation 14.3 % Platelet Count 143 K/uL Mean Platelet Volume 10.4 fL Sodium Level 145 mmol/L Potassium Level 3.6 mmol/L Chloride Level 112 mmol/L Carbon Dioxide Level 23 mmol/L Anion Gap 10.0 mmol/L Blood Urea Nitrogen 24 mg/dl Creatinine 1.20 mg/dl Est Creatinine Clear Calc Drug Dose 37.5 ml/min Estimated GFR () 49.4 Estimated GFR (Non- 42.7 BUN/Creatinine Ratio 19.7 Random Glucose 113 mg/dl Calcium Level 8.3 mg/dl Magnesium Level 1.9 mg/dl Total Creatine Kinase 541 U/L Test 11/21/16 07:00 Bedside Glucose 132 mg/dl Assessment and Plan This is an 81 year old female with PMH of CAD s/p stenting, DM2, LIA, HTN, HLD, Hypothyroidism presented due to mental status changes Altered Mental Status 11/21 * multifactorial: dementia, depression, paranoia, possible hypoglycemia * Head CT negative * Brain MRI - microvascular changes * seroquel as per psych * PT/OT * aricept as outpatient; as per neuro * will adjust diabetic medications - should be off of sulfonylureas due to possible hypoglycemia * hemodynamically stable * will d/c antibiotics 11/20 * Likely an acute process over an underlying chronic dementia * patient with recent loss of , lives alone, paranoia/hallucinations * found outside the house; unknown for how long * no longer hypothermic * Appreciate neurology and psychiatry input * Head CT negative * Brain MRI - microvascular changes * Seroquel added as per psychiatry due to underlying insomnia/confusion * PT/OT eval and treat * will need discharge planning eval * lives alone - will need family support at all times or discharge to SNF Rhabdomyolysis 11/21 * CPK levels improving * stop IVFs * good PO intake, will monitor CPK levels * CPK level ~ 1000 * likely due to fall and unknown amount of time outside * will continue IVFs Leukocytosis, resolved 11/21 * antibiotics have been d/c'd * leukocytosis likely reactive 11/20 * possibly related to lower extremity cellulitis * on aztreonam + vancomycin * WBC now resolved * blood cultures + urine culture pending CAD s/p stenting * no chest pain, no acute process * continue ASA, b-tammie, statin HTN * blood pressure elevated * +anxiety, +pain * continue nifedipine, labetalol Hypothyroidism * TSH wnl * continue home dose of Synthroid DVT ppx * subq heparin DNR Discharge planning: home with home health
--- NOTE | 2016-11-21 09:56 | PROGRESS NOTE ---
DATE: 11/21/2016 SUBJECTIVE: I am seeing Mrs. Piña in followup. She was found down on the ground, hypothermic, having left her house in [facility]. She yesterday complained of some neck pain. She indicates it is somewhat better today, but there is decreased range of motion. Cervical spine x-ray showed no fracture or sublux although there were advanced degenerative changes. She is disoriented but pleasant and follows some simple commands. There is no facial asymmetry. She moves her upper extremities symmetrically. VITAL SIGNS: 36.5, 64, 18, 160/77, 97%. IMPRESSION AND PLAN: 1. Delirium superimposed on dementia. The patient is on Seroquel for paranoia and delusions. She does not overtly appear paranoid or delusional at present, although she is anxious to go home. 2. Alzheimers dementia, will start Aricept in the office. 3. We will sign off. Please have the patient see us in followup post-discharge. VINCE
--- NOTE | 2016-11-21 10:14 | Psychiatric Progress Notes ---
Psychiatric Progress Note Date of Service Nov 21, 2016. Notes ID: Patient reviewed with liaison nurse. Interim progress reviewed. Daughter Maira again at bedside, met with patient and daughter and then daughter individually. CC: "where's my checkbook?" HPI: Patient is tearful and anxious this am, aware she is in the hospital and lack of memory of what happened at the house. Family has since been back to the house and found her coat/wallet and checkbook are in deed missing so they are also unsure if perhaps there were intruders. Regardless patient states she slept well overnight and denies hallucinations. She does note anxiety about living alone, daughter again provided reassurance that they are planning to have family with her around the clock with support of home health as they desire to maintain her at home. ROS: knee pain following fall, denies any change in energy or muscle c/o from yesterday following Seroquel start. MSE: alert, tearful, oriented to place and self, thoughts perseverative, did not appear to be responding to internal stimuli. No delusions expressed. No SI. Imp: dementia, resolving delirium, tolerating Seroquel 12. 5 mg po qhs, remains anxious Plan: risks/benefits reviewed with patient and daughter re: Zoloft trial for anxiety as well as well as need for outpatient psychiatrist to oversee medication. Will start 12.5 mg today then 25 mg tomorrow am. Liaison to facilitate referral to [facility] ([facility]).
[2016-11-21] MEDS ORDERED: SERTRALINE HCL 50 MG TAB PO ONE (10:15)
--- NOTE | 2016-11-21 14:04 | DIAGNOSTIC IMAGING REPORT ---
LEFT KNEE 3 VIEWS CLINICAL HISTORY: Fall with left knee pain. FINDINGS: AP, crosstable lateral, and sunrise views of the left knee are obtained. No prior studies are available for comparison at the time of dictation. The skeletal structures are osteopenic. No fracture is seen. There is moderate tricompartmental degenerative joint space narrowing which is greatest in the medial and patellofemoral compartments. There are patellar enthesophytes, large medial marginal osteophytes, and degenerative beaking of the tibial spine. There is a small joint effusion. Soft tissue edema is noted around the knee. Atherosclerotic calcification is observed in the popliteal artery. IMPRESSION: 1. Soft tissue edema and small joint effusion. No fracture is identified in the left knee. 2. Osteopenia and arthritic change as above. Electronically signed by: Attila Montes M.D. 11/21/2016 2:02 PM Dictated Date/Time: 11/21/2016 2:00 PM
--- NOTE | 2016-11-21 14:07 | DIAGNOSTIC IMAGING REPORT ---
RIGHT KNEE 3 VIEWS CLINICAL HISTORY: Fall with right knee pain. FINDINGS: AP, crosstable lateral, and sunrise views of the right knee are obtained. Correlation is made with radiographs of the right tibia and fibula dated 10/27/2013. The skeletal structures are osteopenic. No definite acute fracture is seen. There is contour deformity of the proximal fibular shaft, likely representing remote fracture. This is new from the 2013 examination. A right knee arthroplasty is in near-anatomic alignment. No periprosthetic lucency is seen. There has been undersurface remodeling of the patella. No joint effusion is identified. Large patellar enthesophytes are observed. Mild prepatellar soft tissue swelling is noted. IMPRESSION: 1. Soft tissue swelling with no clear radiographic evidence of acute fracture. 2. A right knee arthroplasty is in near-anatomic alignment. 3. There is age indeterminant but chronic appearing posttraumatic deformity of the proximal fibular shaft. This is new from the 2013 examination. Clinical correlation will be required. Electronically signed by: Attila Montes M.D. 11/21/2016 2:05 PM Dictated Date/Time: 11/21/2016 2:02 PM
[2016-11-21] MEDS: DICLOFENAC SOD 1% GEL 100 GM TUBE EXT SCH ×2 (14:23→21:12)
[2016-11-21] MEDS: QUETIAPINE FUMARATE 25 MG TAB PO SCH (21:13)
[2016-11-21] MEDS: SIMVASTATIN 10 MG TAB PO SCH (21:14)
[2016-11-22] VITALS (8 sets, daily range): BP systolic 112–164; BP diastolic 57–72; PULSE 63–70; TEMP 36.5–36.6; O2SAT 94–96
[2016-11-22] MEDS: LEVOTHYROXINE 75 MCG TAB PO SCH (06:20)
[2016-11-22] MEDS: HEPARIN SOD 5000 UNIT/0.5 ML CARP SQ SCH ×3 (06:21→21:42)
[2016-11-22 07:07] LABS: HEMATOCRIT 31.5 % (37-47); MEAN CELL VOLUME 85.8 fL (80-100); MEAN CORPUSCULAR HEMOGLOBIN 28.6 pg (25-34); MEAN CORPUSCULAR HGB CONC 33.3 g/dl (32-36); MEAN PLATELET VOLUME 10.4 fL (7.4-10.4); PLATELET COUNT 147 K/uL (130-400); RED BLOOD COUNT 3.67 M/uL (4.2-5.4); WHITE BLOOD COUNT 6.18 K/uL (4.8-10.8)
[2016-11-22] MEDS: DICLOFENAC SOD 1% GEL 100 GM TUBE EXT SCH ×3 (07:40→21:31)
[2016-11-22] MEDS: FUROSEMIDE 20 MG TAB PO SCH (07:41)
[2016-11-22] MEDS: NIFEdipine 30 MG CR TAB PO SCH (07:41)
[2016-11-22] MEDS: CYANOCOBALAMIN 500 MCG TAB (VIT B-12) PO SCH (07:42)
[2016-11-22] MEDS: LABETALOL HCL 200 MG TAB PO SCH ×2 (07:42→21:31)
[2016-11-22] MEDS: ASPIRIN 81 MG ECTAB PO SCH (07:42)
[2016-11-22 07:43] LABS: BUN/CREATININE RATIO 21.2 (10-20); CALCIUM 8.6 mg/dl (8.5-10.1); CREATININE 1.3 mg/dl (0.60-1.20); MAGNESIUM 1.8 mg/dl (1.8-2.4); POTASSIUM 3.5 mmol/L (3.5-5.1)
[2016-11-22] MEDS: SERTRALINE HCL 50 MG TAB PO SCH (07:43)
[2016-11-22] MEDS: NITROGLYCERIN 0.2 MG/HR PATCH TD SCH (07:43)
[2016-11-22] MEDS: CHOLECALCIFEROL 1000 INTER.UNIT TAB PO SCH (07:43)
[2016-11-22] MEDS: INSULIN ASPART 100 UNITS/ML 3 ML PEN SC SCH ×4 (07:49→21:42)
--- NOTE | 2016-11-22 08:31 | Progress Note ---
Subjective Date of Service: Nov 22, 2016. Subjective Pt evaluation today including: conversation w/ patient, physical exam, lab review, review of studies, review of inpatient medication list Saw/examined the patient in room 229 Doing well today, states she feels fine hard of hearing - hearing aids not functioning properly today left knee pain, slightly improving Problem List Medical Problems: (1) Acute kidney injury Status: Acute (2) Altered mental status Status: Acute Review of Systems Respiratory: No shortness of breath Cardiac: No chest pain Musculoskeletal: + joint pain (left knee pain, improving with medications) Psychiatric: + anxiety (improving), + insomnia (doing well inpatient), No depression symptoms Medications Current Inpatient Medications Medications (Trade) Dose Ordered Sig/Anselmo Route Start Time Stop Time Status Last Admin Dose Admin Acetaminophen (Tylenol Tab) 650 mg Q4H PRN PO 11/19/16 12:30 12/19/16 12:29 11/21/16 06:05 650 MG Ondansetron HCl (Zofran Inj) 4 mg Q6H PRN IV 11/19/16 12:30 12/19/16 12:29 Heparin Sodium (Porcine) (Heparin Sq 5000 Unit/0.5ml) 5,000 unit Q8 SQ 11/19/16 14:00 12/19/16 13:59 11/22/16 06:21 5,000 UNIT Aspirin (Ecotrin Tab) 81 mg DAILY PO 11/20/16 09:00 12/20/16 08:59 11/22/16 07:42 81 MG Cholecalciferol (Vitamin D Tab) 1,000 inter.unit DAILY PO 11/20/16 09:00 12/20/16 08:59 11/22/16 07:43 1,000 INTER.UNIT Furosemide (Lasix Tab) 20 mg QAM PO 11/20/16 09:00 12/20/16 08:59 11/22/16 07:41 20 MG Labetalol HCl (Normodyne Tab) 200 mg BID PO 11/19/16 21:00 12/19/16 20:59 11/22/16 07:42 200 MG Levothyroxine Sodium (Synthroid Tab) 75 mcg DAILYBB PO 11/20/16 06:00 12/20/16 05:59 11/22/16 06:20 75 MCG Nitroglycerin (Nitro-Dur 0.2 Mg/Hr Patch) 1 patch DAILY TD 1/20/17 09:00 12/20/16 08:59 11/22/16 07:43 1 PATCH Simvastatin (Zocor Tab) 10 mg QPM PO 11/19/16 21:00 12/19/16 20:59 11/21/16 21:14 10 MG Cyanocobalamin (Vitamin B-12 Tab) 1,000 mcg QAM PO 11/20/16 09:00 12/20/16 08:59 11/22/16 07:42 1,000 MCG Insulin Aspart (novoLOG ASPART) SLIDING SCALE If C... ACHS SC 11/19/16 16:15 12/19/16 16:14 11/22/16 07:49 3 UNITS Glucose (Glucose 40% Gel) 15-30 GRAMS 15 GRAMS... UD PRN PO 11/19/16 12:45 12/19/16 12:44 Glucose (Glucose Chew Tab) 4-8 Tablets 4 Tabl... UD PRN PO 11/19/16 12:45 12/19/16 12:44 Dextrose (Dextrose 50% 50ML Syringe) 25-50ML OF 50% DW IV FOR... UD PRN IV 11/19/16 12:45 12/19/16 12:44 Glucagon (Glucagon Inj) 1 mg UD PRN SQ 11/19/16 12:45 12/19/16 12:44 Nifedipine (Procardia Xl Tab) 90 mg QAM PO 11/20/16 09:00 12/20/16 08:59 11/22/16 07:41 90 MG Miscellaneous (Remove Nitro-Dur Patch) 1 ea DAILY@21 N/A 11/19/16 21:00 12/19/16 20:59 11/21/16 21:00 1 EA Quetiapine Fumarate (seroQUEL TAB) 12.5 mg HS PO 11/20/16 21:00 12/20/16 20:59 11/21/16 21:13 12.5 MG Sertraline HCl (Zoloft Tab) 25 mg QAM PO 11/22/16 09:00 12/22/16 08:59 11/22/16 07:43 25 MG Diclofenac Sodium (Voltaren 1% Top Gel) 1 appln TID EXT 11/21/16 14:00 12/21/16 13:59 11/22/16 07:40 1 APPLN Objective Vital Signs Date Time Temp Pulse Resp B/P Pulse Ox O2 Delivery O2 Flow Rate FiO2 11/22/16 07:43 36.6 67 16 147/63 94 Room Air 11/22/16 04:00 Room Air 11/22/16 04:00 36.6 68 18 144/72 94 Room Air 11/21/16 23:59 Room Air 11/21/16 23:56 36.5 64 20 134/68 96 Room Air 11/21/16 20:00 Room Air 11/21/16 19:22 37.2 82 20 148/72 95 Room Air 11/21/16 16:00 Room Air 11/21/16 15:29 36.8 74 18 180/98 97 Room Air 11/21/16 12:00 Room Air 11/21/16 11:07 36.6 61 20 136/75 95 Room Air Physical Exam General Appearance: no apparent distress, + pertinent finding (+underlying dementia) Respiratory/Chest: lungs clear, normal breath sounds, no respiratory distress, no accessory muscle use Cardiovascular: regular rate, rhythm, no edema, no murmur Abdomen: normal bowel sounds, non tender, soft Extremities: normal inspection, no pedal edema Neurologic/Psychiatric: no motor/sensory deficits, alert, normal mood/affect, + disoriented (improving, oriented to place and person) Laboratory Results Last 24 Hours Test 11/21/16 11:27 11/21/16 16:08 11/21/16 20:04 11/22/16 06:25 Bedside Glucose 147 mg/dl 142 mg/dl 181 mg/dl White Blood Count 6.18 K/uL Red Blood Count 3.67 M/uL Hemoglobin 10.5 g/dL Hematocrit 31.5 % Mean Corpuscular Volume 85.8 fL Mean Corpuscular Hemoglobin 28.6 pg Mean Corpuscular Hemoglobin Concent 33.3 g/dl RDW Standard Deviation 44.8 fL RDW Coefficient of Variation 14.2 % Platelet Count 147 K/uL Mean Platelet Volume 10.4 fL Sodium Level 145 mmol/L Potassium Level 3.5 mmol/L Chloride Level 109 mmol/L Carbon Dioxide Level 23 mmol/L Anion Gap 13.0 mmol/L Blood Urea Nitrogen 28 mg/dl Creatinine 1.30 mg/dl Est Creatinine Clear Calc Drug Dose 35.5 ml/min Estimated GFR () 44.9 Estimated GFR (Non- 38.7 BUN/Creatinine Ratio 21.2 Random Glucose 123 mg/dl Calcium Level 8.6 mg/dl Magnesium Level 1.8 mg/dl Total Creatine Kinase 216 U/L Test 11/22/16 06:59 Bedside Glucose 120 mg/dl Assessment and Plan This is an 81 year old female with PMH of CAD s/p stenting, DM2, LIA, HTN, HLD, Hypothyroidism presented due to mental status changes Delirium Underlying Dementia 11/22 * patient is doing well today, slept well last night * ate breakfast well * started on Zoloft, low dose yesterday, increase as per psych * Seroquel at bedtime for insomnia * PT/OT * plan is for discharge to rehab prior to discharge home 11/21 * multifactorial: dementia, depression, paranoia, possible hypoglycemia * Head CT negative * Brain MRI - microvascular changes * seroquel as per psych * PT/OT * aricept as outpatient; as per neuro * will adjust diabetic medications - should be off of sulfonylureas due to possible hypoglycemia * hemodynamically stable * will d/c antibiotics 11/20 * Likely an acute process over an underlying chronic dementia * patient with recent loss of , lives alone, paranoia/hallucinations * found outside the house; unknown for how long * no longer hypothermic * Appreciate neurology and psychiatry input * Head CT negative * Brain MRI - microvascular changes * Seroquel added as per psychiatry due to underlying insomnia/confusion * PT/OT eval and treat * will need discharge planning eval * lives alone - will need family support at all times or discharge to SNF Rhabdomyolysis 11/22 * CPK levels improving * monitor 11/21 * CPK levels improving * stop IVFs * good PO intake, will monitor CPK levels * CPK level ~ 1000 * likely due to fall and unknown amount of time outside * will continue IVFs Acute Kidney Injury * initial presentation > 2 * likely related to rhabdo and dehydration * improving with IVFs * stopped IVFs on 11/21 * good PO intake, monitor creat daily, avoid nephrotoxic agents when able Leukocytosis, resolved 11/21 * antibiotics have been d/c'd * leukocytosis likely reactive 11/20 * possibly related to lower extremity cellulitis * on aztreonam + vancomycin * WBC now resolved * blood cultures + urine culture pending CAD s/p stenting * no chest pain, no acute process * continue ASA, b-tammie, statin HTN * blood pressure elevated * +anxiety, +pain * continue nifedipine, labetalol Hypothyroidism * TSH wnl * continue home dose of Synthroid DVT ppx * subq heparin DNR Discharge planning: home with home health
[2016-11-22] MEDS ORDERED: VANCOMYCIN TROUGH ONE (11:30)
[2016-11-22] MEDS: ACETAMINOPHEN 325 MG TAB PO PRN ×2 (11:38→17:53)
[2016-11-22] MEDS: QUETIAPINE FUMARATE 25 MG TAB PO SCH (21:32)
[2016-11-22] MEDS: SIMVASTATIN 10 MG TAB PO SCH (21:32)
[2016-11-23] MEDS: LEVOTHYROXINE 75 MCG TAB PO SCH (06:39)
[2016-11-23] MEDS: HEPARIN SOD 5000 UNIT/0.5 ML CARP SQ SCH ×3 (06:40→20:39)
[2016-11-23 07:02] VITALS: BP 133/63; PULSE 67; TEMP 36.8; O2SAT 93
[2016-11-23 07:37] LABS: HEMATOCRIT 30.5 % (37-47); MEAN CELL VOLUME 85.9 fL (80-100); MEAN CORPUSCULAR HEMOGLOBIN 28.2 pg (25-34); MEAN CORPUSCULAR HGB CONC 32.8 g/dl (32-36); PLATELET COUNT 151 K/uL (130-400); RED BLOOD COUNT 3.55 M/uL (4.2-5.4); WHITE BLOOD COUNT 4.45 K/uL (4.8-10.8)
[2016-11-23 08:00] VITALS: O2SAT 93
[2016-11-23 08:10] LABS: BUN/CREATININE RATIO 22.5 (10-20); CALCIUM 8.6 mg/dl (8.5-10.1); CREATININE 1.3 mg/dl (0.60-1.20); POTASSIUM 3.5 mmol/L (3.5-5.1)
[2016-11-23] MEDS: DICLOFENAC SOD 1% GEL 100 GM TUBE EXT SCH ×3 (08:36→20:39)
[2016-11-23] MEDS: ASPIRIN 81 MG ECTAB PO SCH (08:37)
[2016-11-23] MEDS: LABETALOL HCL 200 MG TAB PO SCH ×2 (08:37→20:39)
[2016-11-23] MEDS: CYANOCOBALAMIN 500 MCG TAB (VIT B-12) PO SCH (08:37)
[2016-11-23] MEDS: NIFEdipine 30 MG CR TAB PO SCH (08:37)
[2016-11-23] MEDS: NITROGLYCERIN 0.2 MG/HR PATCH TD SCH (08:38)
[2016-11-23] MEDS: CHOLECALCIFEROL 1000 INTER.UNIT TAB PO SCH (08:38)
[2016-11-23] MEDS: SERTRALINE HCL 50 MG TAB PO SCH (08:38)
[2016-11-23] MEDS: FUROSEMIDE 20 MG TAB PO SCH (08:39)
[2016-11-23] MEDS: INSULIN ASPART 100 UNITS/ML 3 ML PEN SC SCH ×4 (08:51→20:39)
--- NOTE | 2016-11-23 10:32 | Psychiatric Progress Notes ---
Psychiatric Progress Note Date of Service Nov 23, 2016. Notes ID: Patient reviewed with liaison nurse. Interim progress reviewed. CC: "I feel much less anxious" HPI: bright and in chair, discussion about pride in her children as several work for [employer]. Nursing noted some hs confusion. Patient still doesn't feel she is sleeping the best. ROS: denies sedation, less tearful MSE: alert, tearful, oriented to place and self, thoughts much less perseverative, did not appear to be responding to internal stimuli. No delusions expressed. No SI. Imp: dementia, resolving delirium Plan: titrate Seroquel to 25 mg hs (standard starting dose) continue Zoloft 25 mg for now will need outpatient f/u with [facility], liaison assisted with referral to Dr. Sharma at [facility].
--- NOTE | 2016-11-23 14:21 | Progress Note ---
Subjective Date of Service: Nov 23, 2016. Subjective Pt evaluation today including: conversation w/ patient, physical exam, lab review, review of studies, review of inpatient medication list Saw/examined the patient in room 453 Doing well, mentally clear, she is oriented x 3 this morning periods of confusion persist Problem List Medical Problems: (1) Acute kidney injury Status: Acute (2) Altered mental status Status: Acute Review of Systems Constitutional: No fatigue, No weakness Respiratory: No cough, No shortness of breath, No sputum Cardiac: No chest pain Abdomen: No diarrhea, No nausea, No pain, No vomiting Medications Current Inpatient Medications Medications (Trade) Dose Ordered Sig/Anselmo Route Start Time Stop Time Status Last Admin Dose Admin Acetaminophen (Tylenol Tab) 650 mg Q4H PRN PO 11/19/16 12:30 12/19/16 12:29 11/22/16 17:53 650 MG Ondansetron HCl (Zofran Inj) 4 mg Q6H PRN IV 11/19/16 12:30 12/19/16 12:29 Heparin Sodium (Porcine) (Heparin Sq 5000 Unit/0.5ml) 5,000 unit Q8 SQ 11/19/16 14:00 12/19/16 13:59 11/23/16 06:40 5,000 UNIT Aspirin (Ecotrin Tab) 81 mg DAILY PO 11/20/16 09:00 12/20/16 08:59 11/23/16 08:37 81 MG Cholecalciferol (Vitamin D Tab) 1,000 inter.unit DAILY PO 11/20/16 09:00 12/20/16 08:59 11/23/16 08:38 1,000 INTER.UNIT Furosemide (Lasix Tab) 20 mg QAM PO 11/20/16 09:00 12/20/16 08:59 11/23/16 08:39 20 MG Labetalol HCl (Normodyne Tab) 200 mg BID PO 11/19/16 21:00 12/19/16 20:59 11/23/16 08:37 200 MG Levothyroxine Sodium (Synthroid Tab) 75 mcg DAILYBB PO 11/20/16 06:00 12/20/16 05:59 11/23/16 06:39 75 MCG Nitroglycerin (Nitro-Dur 0.2 Mg/Hr Patch) 1 patch DAILY TD 11/20/16 09:00 12/20/16 08:59 11/23/16 08:38 1 PATCH Simvastatin (Zocor Tab) 10 mg QPM PO 11/19/16 21:00 12/19/16 20:59 11/22/16 21:32 10 MG Cyanocobalamin (Vitamin B-12 Tab) 1,000 mcg QAM PO 11/20/16 09:00 12/20/16 08:59 11/23/16 08:37 1,000 MCG Insulin Aspart (novoLOG ASPART) SLIDING SCALE If C... ACHS SC 11/19/16 16:15 12/19/16 16:14 11/23/16 13:01 4 UNITS Glucose (Glucose 40% Gel) 15-30 GRAMS 15 GRAMS... UD PRN PO 11/19/16 12:45 12/19/16 12:44 Glucose (Glucose Chew Tab) 4-8 Tablets 4 Tabl... UD PRN PO 11/19/16 12:45 12/19/16 12:44 Dextrose (Dextrose 50% 50ML Syringe) 25-50ML OF 50% DW IV FOR... UD PRN IV 11/19/16 12:45 12/19/16 12:44 Glucagon (Glucagon Inj) 1 mg UD PRN SQ 11/19/16 12:45 12/19/16 12:44 Nifedipine (Procardia Xl Tab) 90 mg QAM PO 11/20/16 09:00 12/20/16 08:59 11/23/16 08:37 90 MG Miscellaneous (Remove Nitro-Dur Patch) 1 ea DAILY@21 N/A 11/19/16 21:00 12/19/16 20:59 11/22/16 21:37 1 EA Sertraline HCl (Zoloft Tab) 25 mg QAM PO 11/22/16 09:00 12/22/16 08:59 11/23/16 08:38 25 MG Diclofenac Sodium (Voltaren 1% Top Gel) 1 appln TID EXT 11/21/16 14:00 12/21/16 13:59 11/23/16 08:36 1 APPLN Quetiapine Fumarate (seroQUEL TAB) 25 mg HS PO 11/23/16 22:00 12/23/16 21:59 Objective Vital Signs Date Time Temp Pulse Resp B/P Pulse Ox O2 Delivery O2 Flow Rate FiO2 11/23/16 08:00 93 Room Air 10.0 11/23/16 07:02 36.8 67 18 133/63 93 Room Air 11/22/16 23:59 Room Air 11/22/16 23:01 36.6 64 16 112/57 95 Room Air 11/22/16 22:24 Room Air 11/22/16 21:15 70 164/69 11/22/16 16:00 96 Room Air 10.0 11/22/16 15:18 36.5 64 18 158/72 96 Room Air Physical Exam General Appearance: no apparent distress Respiratory/Chest: lungs clear, normal breath sounds, no respiratory distress, no accessory muscle use Cardiovascular: regular rate, rhythm, no edema, no murmur Abdomen: normal bowel sounds, non tender, soft Neurologic/Psychiatric: alert, oriented x 3, + pertinent finding (periods of confusion, anxious affect) Laboratory Results Last 24 Hours Test 11/22/16 16:28 11/22/16 20:23 11/23/16 07:05 11/23/16 07:31 Bedside Glucose 192 mg/dl 201 mg/dl 143 mg/dl White Blood Count 4.45 K/uL Red Blood Count 3.55 M/uL Hemoglobin 10.0 g/dL Hematocrit 30.5 % Mean Corpuscular Volume 85.9 fL Mean Corpuscular Hemoglobin 28.2 pg Mean Corpuscular Hemoglobin Concent 32.8 g/dl RDW Standard Deviation 44.4 fL RDW Coefficient of Variation 14.1 % Platelet Count 151 K/uL Mean Platelet Volume 11.0 fL Sodium Level 143 mmol/L Potassium Level 3.5 mmol/L Chloride Level 108 mmol/L Carbon Dioxide Level 24 mmol/L Anion Gap 11.0 mmol/L Blood Urea Nitrogen 29 mg/dl Creatinine 1.30 mg/dl Est Creatinine Clear Calc Drug Dose 35.5 ml/min Estimated GFR () 44.9 Estimated GFR (Non- 38.7 BUN/Creatinine Ratio 22.5 Random Glucose 130 mg/dl Calcium Level 8.6 mg/dl Test 11/23/16 11:38 Bedside Glucose 230 mg/dl Assessment and Plan This is an 81 year old female with PMH of CAD s/p stenting, DM2, LIA, HTN, HLD, Hypothyroidism presented due to mental status changes Delirium Underlying Dementia 11/23 * delirium - improving * underlying dementia * Zoloft + Seroquel as per psych * plan is for rehab - social media director aware 11/22 * patient is doing well today, slept well last night * ate breakfast well * started on Zoloft, low dose yesterday, increase as per psych * Seroquel at bedtime for insomnia * PT/OT * plan is for discharge to rehab prior to discharge home 11/21 * multifactorial: dementia, depression, paranoia, possible hypoglycemia * Head CT negative * Brain MRI - microvascular changes * seroquel as per psych * PT/OT * aricept as outpatient; as per neuro * will adjust diabetic medications - should be off of sulfonylureas due to possible hypoglycemia * hemodynamically stable * will d/c antibiotics 11/20 * Likely an acute process over an underlying chronic dementia * patient with recent loss of , lives alone, paranoia/hallucinations * found outside the house; unknown for how long * no longer hypothermic * Appreciate neurology and psychiatry input * Head CT negative * Brain MRI - microvascular changes * Seroquel added as per psychiatry due to underlying insomnia/confusion * PT/OT eval and treat * will need discharge planning eval * lives alone - will need family support at all times or discharge to SNF Rhabdomyolysis 11/22 * CPK levels improving * monitor 11/21 * CPK levels improving * stop IVFs * good PO intake, will monitor CPK levels * CPK level ~ 1000 * likely due to fall and unknown amount of time outside * will continue IVFs Acute Kidney Injury, improved * initial presentation > 2 * likely related to rhabdo and dehydration * improving with IVFs * stopped IVFs on 11/21 * good PO intake, monitor creat daily, avoid nephrotoxic agents when able Leukocytosis, resolved 11/21 * antibiotics have been d/c'd * leukocytosis likely reactive 11/20 * possibly related to lower extremity cellulitis * on aztreonam + vancomycin * WBC now resolved * blood cultures + urine culture pending CAD s/p stenting * no chest pain, no acute process * continue ASA, b-tammie, statin HTN * blood pressure elevated * +anxiety, +pain * continue nifedipine, labetalol Hypothyroidism * TSH wnl * continue home dose of Synthroid DVT ppx * subq heparin DNR Discharge planning: home with home health
[2016-11-23 14:58] VITALS: BP 138/64; PULSE 70; TEMP 36.6; O2SAT 95
[2016-11-23 16:00] VITALS: O2SAT 93
[2016-11-23 20:34] VITALS: BP 155/77; PULSE 85
[2016-11-23] MEDS: SIMVASTATIN 10 MG TAB PO SCH (20:39)
[2016-11-23] MEDS ORDERED: QUETIAPINE FUMARATE 25 MG TAB PO SCH (22:00)
[2016-11-23 23:34] VITALS: BP 167/71; PULSE 70; TEMP 36.2; O2SAT 96
[2016-11-24] MEDS: HEPARIN SOD 5000 UNIT/0.5 ML CARP SQ SCH ×3 (06:02→21:15)
[2016-11-24] MEDS: LEVOTHYROXINE 75 MCG TAB PO SCH (06:18)
[2016-11-24 07:39] VITALS: BP_SYST 158; BP_SYST 178; BP_DIAS 71; BP_DIAS 83; PULSE 69; TEMP 36.4; O2SAT 95
[2016-11-24] MEDS: SERTRALINE HCL 50 MG TAB PO SCH (08:00)
[2016-11-24 08:09] LABS: HEMATOCRIT 34.3 % (37-47); MEAN CELL VOLUME 86.2 fL (80-100); MEAN CORPUSCULAR HEMOGLOBIN 28.4 pg (25-34); MEAN CORPUSCULAR HGB CONC 32.9 g/dl (32-36); MEAN PLATELET VOLUME 10.7 fL (7.4-10.4); PLATELET COUNT 209 K/uL (130-400); RED BLOOD COUNT 3.98 M/uL (4.2-5.4); WHITE BLOOD COUNT 5.31 K/uL (4.8-10.8)
[2016-11-24 08:42] LABS: BUN/CREATININE RATIO 25.6 (10-20); CALCIUM 9.4 mg/dl (8.5-10.1); CREATININE 1.7 mg/dl (0.60-1.20); POTASSIUM 3.8 mmol/L (3.5-5.1)
[2016-11-24] MEDS: CYANOCOBALAMIN 500 MCG TAB (VIT B-12) PO SCH (08:59)
[2016-11-24] MEDS: CHOLECALCIFEROL 1000 INTER.UNIT TAB PO SCH (09:00)
[2016-11-24] MEDS: NITROGLYCERIN 0.2 MG/HR PATCH TD SCH (09:02)
[2016-11-24] MEDS: NIFEdipine 30 MG CR TAB PO SCH (09:03)
[2016-11-24] MEDS: LABETALOL HCL 200 MG TAB PO SCH ×2 (09:04→19:45)
[2016-11-24] MEDS: ASPIRIN 81 MG ECTAB PO SCH (09:04)
[2016-11-24] MEDS: DICLOFENAC SOD 1% GEL 100 GM TUBE EXT SCH ×3 (09:05→19:45)
[2016-11-24] MEDS: FUROSEMIDE 20 MG TAB PO SCH (09:06)
[2016-11-24] MEDS: INSULIN ASPART 100 UNITS/ML 3 ML PEN SC SCH ×4 (09:17→21:15)
[2016-11-24 15:27] VITALS: BP 146/80; PULSE 68; TEMP 36.4; O2SAT 97
--- NOTE | 2016-11-24 15:42 | Progress Note ---
Internal Med Progress Note Date of Service: Nov 24, 2016. Provider Documentation: SUBJECTIVE: Patient is lying in her and seems little confused. daughter is at bedside. she is aware of person but [facility]. As per daughter, she is different since yesterday evening and did not get good sleep overnight. No SOB. Lj any nausea/vomiting or abdominal pain. OBJECTIVE: Vital Signs-as noted below Examination: General Appearance: Awake and is in no apparent distress HEENT: Normocephalic, Eyes, Ears, Nose & Throat are normal looking. Neck: Supple, Midline trachea, No JVD. Respiratory/Chest: lungs clear, normal breath sounds, no respiratory distress, no accessory muscle use Cardiovascular: regular rate, rhythm, no edema, no murmur Abdomen: normal bowel sounds, non tender, soft Neurologic/Psychiatric: alert, oriented x 3, periods of confusion, anxious affect. Lab data as noted below. ASSESSMENT & PLAN: Delirium: Has underlying Dementia. Some component of grief reaction, multifactorial: dementia, depression. Anxious personality. -Symptoms may have worsening with Seroquel and thus am stopping it at request of daughter -Added Risperdal at bedtime. Will see how she tolerates. -Plans for Rehab once stabilizes. -Continue Zoloft 1 Rhabdomyolysis: Resolving and will check CPK in AM labs. Acute Kidney Injury: Improved -Monitor fluid intake -Avoid any nephrotoxin. -Off IVF Leukocytosis: Resolved. Possibly related to lower extremity cellulitis -Off antibiotics. Hypertension: BP has been high intermittently.Likely due to anxiety and/or pain. -Continue Nifedipine, Labetalol under parameters. CAD s/p stenting: Stable. No acute cardiac issue. -Continue ASA, b-tammie, statin Hypothyroidism: Normal TSH. -Continue home dose of Synthroid DVT Prophylaxis: Sq Heparin Code Status: Patient is DNR. Discharge planning: home with home health once is clinically stable. Vital Signs: Date Time Temp Pulse Resp B/P Pulse Ox O2 Delivery O2 Flow Rate FiO2 11/24/16 12:19 Room Air 11/24/16 08:52 Room Air 11/24/16 07:39 36.4 69 16 158/83 95 Room Air 178/71 11/24/16 00:00 Room Air 11/23/16 23:34 36.2 70 17 167/71 96 Room Air 11/23/16 20:34 85 155/77 11/23/16 20:00 Room Air 11/23/16 16:00 93 Room Air 10.0 Lab Results: Results Past 24 Hours Test 11/23/16 16:47 11/23/16 20:05 11/24/16 07:30 11/24/16 08:29 Range/Units Bedside Glucose 131 198 166 70-90 mg/dl White Blood Count 5.31 4.8-10.8 K/uL Red Blood Count 3.98 4.2-5.4 M/uL Hemoglobin 11.3 12.0-16.0 g/dL Hematocrit 34.3 37-47 % Mean Corpuscular Volume 86.2 80-100 fL Mean Corpuscular Hemoglobin 28.4 25-34 pg Mean Corpuscular Hemoglobin Concent 32.9 32-36 g/dl RDW Standard Deviation 45.3 36.4-46.3 fL RDW Coefficient of Variation 14.3 11.5-14.5 % Platelet Count 209 130-400 K/uL Mean Platelet Volume 10.7 7.4-10.4 fL Sodium Level 142 136-145 mmol/L Potassium Level 3.8 3.5-5.1 mmol/L Chloride Level 106 98-107 mmol/L Carbon Dioxide Level 21 21-32 mmol/L Anion Gap 15.0 3-11 mmol/L Blood Urea Nitrogen 44 7-18 mg/dl Creatinine 1.70 0.60-1.20 mg/dl Est Creatinine Clear Calc Drug Dose 27.1 ml/min Estimated GFR () 32.4 Estimated GFR (Non- 28.0 BUN/Creatinine Ratio 25.6 10-20 Random Glucose 176 70-99 mg/dl Calcium Level 9.4 8.5-10.1 mg/dl Test 11/24/16 11:26 Range/Units Bedside Glucose 186 70-90 mg/dl
[2016-11-24] MEDS: SIMVASTATIN 10 MG TAB PO SCH (19:45)
[2016-11-24 20:00] VITALS: BP 180/96; PULSE 72
[2016-11-24] MEDS ORDERED: RISPERIDONE ODT 1MG PO SCH (22:00)
[2016-11-25 00:08] VITALS: BP 129/71; PULSE 61; TEMP 36.3; O2SAT 96
[2016-11-25] MEDS: ACETAMINOPHEN 325 MG TAB PO PRN ×2 (00:54→14:20)
[2016-11-25] MEDS: LEVOTHYROXINE 75 MCG TAB PO SCH (05:20)
[2016-11-25] MEDS: HEPARIN SOD 5000 UNIT/0.5 ML CARP SQ SCH ×2 (05:24→14:00)
[2016-11-25 06:59] VITALS: BP 165/84; PULSE 67; TEMP 36.6; O2SAT 97
[2016-11-25 07:43] LABS: BASO % 0.8 %; BASO ABS # 0.04 K/uL (0-0.2); COMPLETE YES; EOS % 5.2 %; HEMATOCRIT 33.1 % (37-47); IG% 0.2 %; LYMPH % 21.9 %; MEAN CELL VOLUME 85.8 fL (80-100); MEAN CORPUSCULAR HEMOGLOBIN 28.8 pg (25-34); MEAN CORPUSCULAR HGB CONC 33.5 g/dl (32-36); MONO % 6.4 %; NEUT % 65.5 %; PLATELET COUNT 206 K/uL (130-400); RED BLOOD COUNT 3.86 M/uL (4.2-5.4); WHITE BLOOD COUNT 5.03 K/uL (4.8-10.8)
[2016-11-25 08:17] LABS: BUN/CREATININE RATIO 32.3 (10-20); CALCIUM 9.3 mg/dl (8.5-10.1); CREATININE 1.4 mg/dl (0.60-1.20); POTASSIUM 3.9 mmol/L (3.5-5.1)
[2016-11-25] MEDS: LABETALOL HCL 200 MG TAB PO SCH (08:34)
[2016-11-25] MEDS: NIFEdipine 30 MG CR TAB PO SCH (08:34)
[2016-11-25] MEDS: FUROSEMIDE 20 MG TAB PO SCH (08:35)
[2016-11-25] MEDS: CHOLECALCIFEROL 1000 INTER.UNIT TAB PO SCH (08:35)
[2016-11-25] MEDS: ASPIRIN 81 MG ECTAB PO SCH (08:37)
[2016-11-25] MEDS: CYANOCOBALAMIN 500 MCG TAB (VIT B-12) PO SCH (08:37)
[2016-11-25] MEDS: DICLOFENAC SOD 1% GEL 100 GM TUBE EXT SCH ×2 (08:38→14:21)
[2016-11-25] MEDS: NITROGLYCERIN 0.2 MG/HR PATCH TD SCH (08:39)
[2016-11-25] MEDS: SERTRALINE HCL 50 MG TAB PO SCH (08:40)
[2016-11-25] MEDS: INSULIN ASPART 100 UNITS/ML 3 ML PEN SC SCH ×2 (08:51→12:40)
--- NOTE | 2016-11-25 11:29 | Progress Note ---
Internal Med Progress Note Date of Service: Nov 25, 2016. Provider Documentation: SUBJECTIVE: Patient is lying in her and seems little confused. daughter & son are at bedside. She looks better and is more cooperative and is less anxious. No SOB. Lj any nausea/vomiting or abdominal pain.Did not sleep too well overnight but was not combative. OBJECTIVE: Vital Signs-as noted below Examination: General Appearance: Awake and is in no apparent distress HEENT: Normocephalic, Eyes, Ears, Nose & Throat are normal looking. Neck: Supple, Midline trachea, No JVD. Respiratory/Chest: lungs clear, normal breath sounds, no respiratory distress, no accessory muscle use Cardiovascular: regular rate, rhythm, no edema, no murmur Abdomen: normal bowel sounds, non tender, soft Neurologic/Psychiatric: alert, oriented x 2, periods of confusion, anxious affect. Lab data as noted below. ASSESSMENT & PLAN: Delirium: Has underlying Dementia. Some component of grief reaction, multifactorial: dementia, depression. Anxious personality. -Symptoms may have worsening with Seroquel and thus am stopping it at request of daughter -Added Risperdal at bedtime. Will see how she tolerates. -Plans for discharge home with all the needed help. -Continue Zoloft 1 Rhabdomyolysis: Resolved. Acute Kidney Injury: Improved -Monitor fluid intake -Avoid any nephrotoxin. -Off IVF Leukocytosis: Resolved. Possibly related to lower extremity cellulitis -Off antibiotics. Hypertension: BP has been high intermittently.Likely due to anxiety and/or pain. -Continue Nifedipine, Labetalol under parameters. CAD s/p stenting: Stable. No acute cardiac issue. -Continue ASA, b-tammie, statin Hypothyroidism: Normal TSH. -Continue home dose of Synthroid DVT Prophylaxis: Sq Heparin Code Status: Patient is DNR. Discharge planning: Help a detailed discussion and explained to them about Dementia and Depression. They want to take her home and will do their best to supervise her round the clock. She is medically stable and will be discharged home with needed services. Vital Signs: Date Time Temp Pulse Resp B/P Pulse Ox O2 Delivery O2 Flow Rate FiO2 11/25/16 07:45 Room Air 11/25/16 06:59 36.6 67 18 165/84 97 Room Air 11/25/16 00:08 36.3 61 18 129/71 96 Room Air 11/25/16 00:00 Room Air 11/24/16 20:00 Room Air 11/24/16 20:00 72 180/96 11/24/16 15:27 36.4 68 16 146/80 97 Room Air 11/24/16 12:19 Room Air Lab Results: Results Past 24 Hours Test 11/24/16 16:36 11/24/16 19:59 11/25/16 06:53 11/25/16 07:35 Range/Units Bedside Glucose 157 162 165 70-90 mg/dl White Blood Count 5.03 4.8-10.8 K/uL Red Blood Count 3.86 4.2-5.4 M/uL Hemoglobin 11.1 12.0-16.0 g/dL Hematocrit 33.1 37-47 % Mean Corpuscular Volume 85.8 80-100 fL Mean Corpuscular Hemoglobin 28.8 25-34 pg Mean Corpuscular Hemoglobin Concent 33.5 32-36 g/dl Platelet Count 206 130-400 K/uL Mean Platelet Volume 11.0 7.4-10.4 fL Neutrophils (%) (Auto) 65.5 % Lymphocytes (%) (Auto) 21.9 % Monocytes (%) (Auto) 6.4 % Eosinophils (%) (Auto) 5.2 % Basophils (%) (Auto) 0.8 % Neutrophils # (Auto) 3.30 1.4-6.5 K/uL Lymphocytes # (Auto) 1.10 1.2-3.4 K/uL Monocytes # (Auto) 0.32 0.11-0.59 K/uL Eosinophils # (Auto) 0.26 0-0.5 K/uL Basophils # (Auto) 0.04 0-0.2 K/uL RDW Standard Deviation 44.2 36.4-46.3 fL RDW Coefficient of Variation 14.1 11.5-14.5 % Immature Granulocyte % (Auto) 0.2 % Immature Granulocyte # (Auto) 0.01 0.00-0.02 K/uL Sodium Level 142 136-145 mmol/L Potassium Level 3.9 3.5-5.1 mmol/L Chloride Level 108 98-107 mmol/L Carbon Dioxide Level 22 21-32 mmol/L Anion Gap 12.0 3-11 mmol/L Blood Urea Nitrogen 45 7-18 mg/dl Creatinine 1.40 0.60-1.20 mg/dl Est Creatinine Clear Calc Drug Dose 32.9 ml/min Estimated GFR () 41.0 Estimated GFR (Non- 35.4 BUN/Creatinine Ratio 32.3 10-20 Random Glucose 174 70-99 mg/dl Calcium Level 9.3 8.5-10.1 mg/dl Total Creatine Kinase 98 26-192 U/L
[2016-11-25] MEDS ORDERED: [UNRECOGNIZED DRUG - CODE] PO (14:49)
[2016-11-25] MEDS ORDERED: ZLF50 PO (14:49)
[2016-11-25] MEDS ORDERED: SITA50TA PO (14:49)
--- NOTE | 2016-11-25 14:56 | Discharge Instructions ---
Discharge Instructions Admission Reason for Admission: Hypothermia Discharge Discharge Diagnosis / Problem: DEmentia with Delirium Discharge Goals Goal(s): Decrease discomfort, Improve function, Increase independence, Improve disease control, Improve nutritional status, Learn about illness, Diagnostic testing, Therapeutic intervention Activity Recommendations Activity Limitations: resume your previous activity Lifting Limitations: no more than 5 pounds Exercise/Sports Limitations: as tolerated Shower/Bathe: no limitations (With Assistance) Driving or Machine Use: NO . Instructions / Follow-Up Instructions / Follow-Up Follow up with PCP in 5-7 days after discharge Got an appointment with Dr. Wing on 12/03/2016 @ 12.50 PM. Current Hospital Diet Patient's current hospital diet: Diabetes Type 2 Diet, AHA Diet (Heart Healthy) Discharge Diet Recommended Diet: Diabetes Type 2 Diet Fluid Restriction: 1800 ml (7 cups) Pending Studies Studies pending at discharge: no Laboratory Results Hemoglobin A1c Test 11/20/16 05:14 Range/Units Estimated Average Glucose 128 mg/dl Hemoglobin A1c 6.1 H 4.5-5.6 % Medical Emergencies . Who to Call and When: Medical Emergencies: If at any time you feel your situation is an emergency, please call 911 immediately. . Non-Emergent Contact Non-Emergency issues call your: Primary Care Provider . . "Provider Documentation" section prepared by Vincent Joseph. VTE Core Measure Inpt VTE Proph given/why not?: Unfractionated heparin SQ
--- NOTE | 2016-11-25 14:57 | Discharge Summary ---
Discharge Summary Admission Date: Nov 19, 2016 at 12:26 Discharge Date: Nov 25, 2016 Discharge Disposition: Home with services Principal Diagnosis: Delirium due to Dementia Rhabdomyolysis (Resolved) Acute Kidney Injury (Resolved) Leukocytosis (Resolved) Secondary Diagnoses/Problems: Hypertension History CAD Hypothyroidism Procedures: SINGLE VIEW CHEST IMPRESSION: Cardiomegaly with no acute cardiopulmonary abnormality CT SCAN OF THE BRAIN WITHOUT IV CONTRAST IMPRESSION: There is no hemorrhage, mass effect, or evidence of acute territorial ischemia by CT criteria. Brain MRI WITHOUT CONTRAST IMPRESSION: No acute intracranial abnormality. Scattered foci of T2 hyperintensity seen within the periventricular and subcortical white matter are nonspecific but favor microvascular ischemic change. LEFT HIP 2 VIEWS IMPRESSION: Osteopenia and mild arthritic change as above. No fracture is identified. ULTRASOUND OF THE CAROTID ARTERIES IMPRESSION: 1. There is no sonographic evidence of hemodynamically significant stenosis in the right or left carotid arterial system. 2. Antegrade flow is shown in the vertebral arteries. C-SPINE ROUTINE 4 OR 5 VIEWS IMPRESSION: 1. No acute fractures or traumatic subluxations are visualized 2. Advanced degenerative changes the C4-5 and C5-6 levels. RIGHT KNEE 3 VIEWS IMPRESSION: 1. Soft tissue swelling with no clear radiographic evidence of acute fracture. 2. A right knee arthroplasty is in near-anatomic alignment. 3. There is age indeterminant but chronic appearing posttraumatic deformity of the proximal fibular shaft. This is new from the 2013 examination. Clinical correlation will be required. Vaccinations: NONE Consultations: Neurology Psychiatry Pending Studies/Follow-Up: May need follow up with a Neurologist as outpatient. Medication Reconciliation New Medications: Sitagliptin Phosphate (Januvia) 50 Mg Tab 1 TAB PO DAILY for 90 Days, #90 TAB 1 Refill Risperidone (Risperidone M-Tab) 1 Mg Rocio 1 MG PO BID PRN for agitation, #60 Sertraline HCl (Sertraline HCl) 50 Mg Tab 25 MG PO QAM, #30 TAB 1 Refill Continued Medications: Aspirin (Aspirin Chewable) 81 Mg Chew 81 MG PO DAILY, TAB Cholecalciferol (Vitamin D3) 1,000 Unit Tab 1 TAB PO DAILY for 30 Days, #30 TAB 5 Refills Cyanocobalamin (Vitamin B12) 1,000 Mcg Tab 1000 MCG PO QAM Furosemide (Lasix) 20 Mg Tab 20 MG PO QAM, TAB Labetalol Hcl (Normodyne) 200 Mg Tab 200 MG PO BID, TAB Levothyroxine Sodium (Levothyroxine Sodium) 75 Mcg Tab 75 MCG PO QAM Nifedipine Ext Rel (Procardia Xl Ext Rel) 30 Mg Tabcr 30 MG PO QAM, TAB TOTAL OF 90 MG Nifedipine Ext Rel (Procardia Xl Ext Rel) 60 Mg Tabcr 60 MG PO QAM, TAB TOTAL OF 90MG Nitroglycerin (Nitroglycerin Transdermal) 1 Patch Tdsy TD DAILY for Chest Pain Simvastatin (Zocor) 10 Mg Tab 10 MG PO QPM, TAB Discontinued Medications: Cephalexin Monohydrate (Keflex) 500 Mg Cap 500 MG PO TID, #15 CAP PT HAS NOT STARTED TAKING THIS MED YET BUT HAS RX FILLED Glipizide Xl (Glucotrol Xl) 10 Mg Tab 10 MG PO QAM, TAB Metronidazole (Flagyl) 500 Mg Tab 500 MG PO BID, #20 TAB PT HASNT STARTED TAKING THIS MED YET BUT HAS RX FILLED Admission Information HPI (per Admitting provider): This is an 81 year old female with PMH of CAD s/p stent, DM, sleep apnea non- compliant with CPAP, hypothyroidism, hypertension, hyperlipidemia, and other problems listed below, who was brought to ER by ambulance for altered mental status. History not obtainable from patient due to mental status. Family states they saw the patient yesterday after she had fallen in the basement (family unsure what happened) after going to the basement because she thought there was an intruder. Then today pt' son-in-law came to her house, patient did not answer the door so entered the house through the window. Patient was not in the house and son-in-law noticed furniture was knocked over. 911 was called and patient was found 500 yards away from the home. It is unclear how long she was outside. Daughter states she was saying that people were trying to inject her with needles when she as found. Upon arrival to the ED patient was hypothermic with core temp 34.6 which improved with warm IVF's and Rafiq hugger. Daughters state she was an antibiotics in late October for left leg infected sores. Daughter felt she was not getting better so called Dr. Izquierdo, who called in script for Keflex and Flagyl to start yesterday, but daughter states she did not take it (daughter counted the pills). Pt's daughter is unsure if she is taking any of her medications. Daughter states after May 2016 shoulder surgery she had hallucinations, and since then it was happening intermittently, but has been worse over past 2 months. Patient lives alone and cares for herself including her finances, which the daughter checks. Daughter states she is paranoid about the finances, has had insomnia, and has been fearful to leave her home, and has intermittent short term memory loss. Family denies any recent illness including fevers, chills, URI symptoms, cough, GI symptoms, urinary symptoms. She has been eating and drinking normally per family. Patient denies any chest pain or shortness of breath. She is not able to answer what happened INFORMATION SYSTEMS COORDINATOR. Family states stent was placed in remote past. Daughters deny history of schizophrenia, anxiety, depression, dementia. Denies history of arrhythmia or CHF. Physical Exam (per Admitting): General Appearance: WD/WN, + pertinent finding (alert confused ill appearing 81 year old female, rafiq hugger in place, no distress, daughters at bedside) Head: normocephalic, atraumatic Eyes: normal inspection, PERRL, EOMI, sclerae normal ENT: pharynx normal, + pertinent finding (hard of hearing) Neck: supple, no JVD, trachea midline Respiratory/Chest: lungs clear, normal breath sounds, no respiratory distress, no accessory muscle use, + pertinent finding (saturating well on oxygen mask) Cardiovascular: regular rate, rhythm, + systolic murmur, + pertinent finding (Trace edema) Abdomen/GI: normal bowel sounds, non tender, soft Extremities/Musculoskelatal: no calf tenderness, + pertinent finding (1+ edema BLLE) Neurologic/Psych: alert, normal mood/affect, + pertinent finding (initially was not answering questions appropriately. on reassessment she could answer she is in the hospital, and date is "around the ". unable to answer what happened INFORMATION SYSTEMS COORDINATOR. no dysarthria. cranial nerves II-XII intact. generally weak but moves all extremities equally. ) Skin: warm/dry, + pertinent finding (scattered ecchymosis and fresh appearing abrasions of extremities) Hospital Course Delirium: Has underlying Dementia. Some component of grief reaction, multifactorial: dementia, depression. Anxious personality. -Symptoms may have worsening with Seroquel and thus am stopping it at request of daughter -Added Risperdal at bedtime. Will see how she tolerates. -Plans for discharge home with all the needed help. -Continue Zoloft 1 Rhabdomyolysis: Resolved. Acute Kidney Injury: Improved -Monitor fluid intake -Avoid any nephrotoxin. -Off IVF Leukocytosis: Resolved. Possibly related to lower extremity cellulitis -Off antibiotics. Hypertension: BP has been high intermittently.Likely due to anxiety and/or pain. -Continue Nifedipine, Labetalol under parameters. CAD s/p stenting: Stable. No acute cardiac issue. -Continue ASA, b-tammie, statin Hypothyroidism: Normal TSH. -Continue home dose of Synthroid DVT Prophylaxis: Sq Heparin Code Status: Patient is DNR. Discharge planning: Help a detailed discussion and explained to them about Dementia and Depression. They want to take her home and will do their best to supervise her round the clock. She is medically stable and will be discharged home with needed services. Total time spent on discharge = 50 minutes. This includes examination of the patient, discharge planning, medication reconciliation, and communication with other providers. Discharge Instructions Discharge Goals Goal(s): Decrease discomfort, Improve function, Increase independence, Improve disease control, Improve nutritional status, Learn about illness, Diagnostic testing, Therapeutic intervention Activity Recommendations Activity Limitations: resume your previous activity Lifting Limitations: no more than 5 pounds Exercise/Sports Limitations: as tolerated Shower/Bathe: no limitations (With Assistance) Driving or Machine Use: NO . Instructions / Follow-Up Instructions / Follow-Up Follow up with PCP in 5-7 days after discharge Got an appointment with Dr. Wing on 12/03/2016 @ 12.50 PM. Current Hospital Diet Patient's current hospital diet: Diabetes Type 2 Diet, AHA Diet (Heart Healthy) Discharge Diet Recommended Diet: Diabetes Type 2 Diet Fluid Restriction: 1800 ml (7 cups)
[2016-11-25 15:11] VITALS: BP 165/84; PULSE 67; TEMP 36.6; O2SAT 97
== END 2016-11-25 15:50 | disposition home health service (06) | DRG 948 ==
LOC: ENRESERVTM → ENRESERVDT → C.ED 10:00 → EDBD 10:00 → C.2T 12:26 → C.MS4W 11-22 10:20
PROVIDERS: ADMIT Internal Medicine; ATTEND Emergency Medicine
DX: R41.0 Disorientation, unspecified (principal); N17.9 Acute kidney failure, unspecified; L03.119 Cellulitis of unspecified part of limb; F02.80 Dementia in other diseases classified elsewhere, unspecified severity, without behavioral disturbance, psychotic disturbance, mood disturbance, and anxiety; T79.6XXA Traumatic ischemia of muscle, initial encounter; T68.XXXA Hypothermia, initial encounter; E87.5 Hyperkalemia; I48.91 Unspecified atrial fibrillation; I12.9 Hypertensive chronic kidney disease with stage 1 through stage 4 chronic kidney disease, or unspecified chronic kidney disease; I25.10 Atherosclerotic heart disease of native coronary artery without angina pectoris; N18.9 Chronic kidney disease, unspecified; F32.9 Major depressive disorder, single episode, unspecified; F41.9 Anxiety disorder, unspecified; G47.00 Insomnia, unspecified; Z66 Do not resuscitate; E11.65 Type 2 diabetes mellitus with hyperglycemia; E03.9 Hypothyroidism, unspecified; E78.5 Hyperlipidemia, unspecified; F60.6 Avoidant personality disorder; G47.30 Sleep apnea, unspecified; Z91.19 Patient's noncompliance with other medical treatment and regimen; M25.561 Pain in right knee; Z79.82 Long term (current) use of aspirin; Z79.84 Long term (current) use of oral hypoglycemic drugs; Z79.899 Other long term (current) drug therapy; Z88.0 Allergy status to penicillin; Z88.5 Allergy status to narcotic agent; X31.XXXA Exposure to excessive natural cold, initial encounter; Z98.61 Coronary angioplasty status; E66.9 Obesity, unspecified; Z91.83 Wandering in diseases classified elsewhere; W19.XXXA Unspecified fall, initial encounter; Y92.018 Other place in single-family (private) house as the place of occurrence of the external cause; Z95.820 Peripheral vascular angioplasty status with implants and grafts